=== PATIENT | female | born 1960 | race Caucasian/White ===

== ENCOUNTER 2023-03-30 23:13 | Inpatient (IN) ==
[2023-03-31] MEDS ORDERED: ONDANSETRON INJ 2 MG/ML 2 ML VIAL IV STA (00:26)
[2023-03-31] MEDS ORDERED: HYDROmorphone INJ 1 MG/ML SYRINGE IV STA (00:26)
[2023-03-31] MEDS ORDERED: SODIUM CHLORIDE 0.9% 1000ML 1,000 ML IV STA ×2 (00:26→06:02)
[2023-03-31 00:57] LABS: Basophils # (auto) 0.05 K/uL (0-0.2); Basophils % (auto) 0.5 %; Eosinophils # (auto) 0.06 K/uL (0-0.50); Eosinophils % (auto) 0.6 %; Hematocrit (blood only) 42.2 % (37.0-47.0); Hemoglobin 14.2 g/dl (12.0-16.0); Immature Granulocytes # (auto) 0.03 K/uL (0.01-0.20); Immature Granulocytes % (auto) 0.3 %; Lymphocytes # (auto) 1.27 K/uL (1.2-3.4); Lymphocytes % (auto) 12.8 %; Mean Corpuscular Hemoglobin 30.1 pg (25.0-34.0); Mean Corpuscular Hgb Conc 33.6 g/dL (32.0-36.0); Mean Corpuscular Volume 89.6 fL (80.0-100.0); Mean Platelet Volume 9.4 fL (9.4-12.4); Monocytes % (auto) 7.1 %; Neutrophils # (auto) 7.79 K/uL (1.40-6.50); Neutrophils % (auto) 78.7 %; Platelet Count 279 K/uL (130-400); RDW Coefficient of Variation 12.6 % (11.5-14.5); RDW Standard Deviation 41.5 fL (36.4-46.3); Red Blood Count 4.71 M/uL (4.20-5.40)
[2023-03-31 01:03] LABS: Albumin Globulin Ratio 1.2 (0.9-2); Albumin Level 4.1 gm/dl (3.4-5.0); BUN Creatinine Ratio 18.1 (10-20); Bilirubin,Total 2.5 mg/dl (0.2-1.0); Calcium 9.3 mg/dl (8.6-10.3); Creatinine Clr Calc Pharmacy 75.3 ml/min; Est GFR (African American) 75.9 ml/min; Est GFR (Non-African American) 65.5 ml/min; Globulin 3.5 gm/dl (2.5-4.0); Potassium 4.2 mmol/L (3.5-5.1); Total Protein 7.6 gm/dl (6.0-8.3)
--- NOTE | 2023-03-31 04:08 | Emergency Department Note ---
Impression & Plan Biliary colic Admit to the [facility] service for evaluation ED Provider Note NAME: AMINA GOMEZ AGE: 62 SEX: F ARRIVES VIA: Walk-In INFORMANT: Patient ED PROVIDER(S): Cathy Mart DO CHIEF COMPLAINT: Right upper quadrant abdominal pain PLAN: Disposition: Admit to the [facility] Condition: Fair MEDICAL DECISION MAKING: This is a 62-year-old female patient presents to the emergency department with right upper quadrant abdominal pain and vomiting. Patient has had 3 episodes of pain and nausea/vomiting in the past 24 hours. She underwent a gallbladder ultrasound and blood work earlier this morning which showed evidence of cholelithiasis and elevated transaminases. However the pain had subsided earlier in the day. This evening, the pain returned and continues along with bilious vomiting. I obtained external records from [facility] to review the ultrasound report and laboratory studies. Patient now has an elevated total bilirubin to 2.5 and elevated alkaline phosphatase. We have repeated her right upper quadrant ultrasound here in the emergency department tonight. There is evidence of a dilated common bile duct now. I discussed the case with the [facility] and they will evaluate for further management of biliary colic and will need to rule out choledocholithiasis. Triage Nursing notes reviewed and agree with them. Additional history obtained from her who is at the bedside External medical records reviewed in the [employer] system Vital Signs: reviewed and unremarkable Differential diagnosis: Acute cholecystitis; choledocholithiasis; biliary colic, sepsis; dehydration ER treatment provided: Cardiac monitoring IV normal saline bolus IV Zofran IV Dilaudid Diagnostics interpreted by me: Laboratory studies: See below Imaging studies: As per stat rad Right upper quadrant ultrasound: See report HPI: 62/F arrives for evaluation of right upper quadrant abdominal pain. Patient has had 3 episodes of right upper quadrant abdominal pain, nausea and vomiting in the past 24 hours. She was seen earlier today at [facility] for a right upper quadrant ultrasound to look at the gallbladder as well as blood work. Throughout the afternoon, the pain and vomiting subsided but it returned at 7 PM this evening and has not gone away. She now has bilious vomiting. She does describe a extensive family history of gallbladder issues including her mother and grandmother PAST MEDICAL HISTORY:GERD PAST SURGICAL HISTORY:See Below FAMILY HISTORY:See Below SOCIAL HISTORY:Patient is ; she denies alcohol or tobacco use. HOME MEDICATIONS:See list ALLERGIES:See list VITALS:See Below PHYSICAL EXAMINATION: HEENT: Head - normocephalic and atraumatic. Pupils are equal, round, and reactive to light. Extraocular eye muscles are intact, and sclera are anicteric. Nose - moist nasal mucosa without discharge. Mouth - moist buccal mucosa. Oropharynx is nonerythematous and there is no tonsillar exudate or edema noted. Neck: Supple; no cervical of adenopathy or JVD Heart: Regular rate and rhythm. There is a normal S1 and S2 with no murmurs, clicks, or gallops appreciated. Lungs: Clear to auscultation bilaterally with no wheezes, rales, or rhonchi. Abdomen: Soft, exquisitely tender to palpation in the right quadrant of the abdomen and epigastrium. There are no palpable pulsatile masses or hepatosplenomegaly. There is no guarding, rigidity, or rebound noted. Extremities: No evidence of cyanosis, clubbing, or edema. There are easily palpable peripheral pulses. Skin: warm and dry with good turgor and no rashes. ED COURSE: Times/Reassessments: 0015: Patient was evaluated in room C11. A complete history and physical was performed. An IV lock was initiated and labs are drawn as above. Patient was given a dose of IV Dilaudid and IV Zofran for her pain and nausea. She was bolused with IV normal saline solution. She went for right upper quadrant ultrasound of the abdomen. Upon return from radiology, I reviewed the results with the patient and her . I discussed the case with the [facility] and they will evaluate for f urther management. Cathy Mart, DO Past Med/Surg History Social History Smoking Status: Never smoker Second Hand Exposure: No; Do You Dip or Chew Tobacco: No; Tobacco Cessation Education Requested by Patient: No Hx Alcohol Use: No Hx Substance Use: No Preferred Language: Greek Communication Ability: Effective Ethnic Origins Teacher Required: No Beliefs That Will Affect Care: None Current Living Situation: Spouse Other Information That Helps Us Care for You: No Feels Safe at Home: Yes Safety Concerns: Feels Safe At This Time Assistive Devices: None Allergies Allergies Allergy/AdvReac Type Severity Reaction Status Date / Time kiwi Allergy Severe THROAT Verified 03/31/23 00:22 SWELLS DATES Allergy Severe THROAT Uncoded 03/31/23 00:22 SWELLS FIGS Allergy Severe THROAT Uncoded 03/31/23 00:22 SWELLS Home Meds Home Medications Medication Instructions Recorded Confirmed omeprazole magnesium 20 mg 20 mg PO QPM 03/31/23 03/31/23 tablet,delayed release (Prilosec OTC) Results & Data (ED) Vital Signs Vital Signs - 24 hr 03/31/23 08:43 03/31/23 09:48 03/31/23 10:34 Temperature 36.6 C Temperature Source Oral Pulse Rate 64 68 Pulse Rate [Apical] 65 Respiratory Rate 20 18 Blood Pressure 136/95 Blood Pressure [Left Arm] 123/83 Blood Pressure Mean [Left Arm] 96 Blood Pressure Position [Left Arm] Lying Pulse Oximetry 98 98 Oxygen Delivery Method Room Air Room Air EWS Level of Consciousness - Last Result EWS Temperature - Last Result EWS Respiratory Rate - Last Result EWS Oxygen Saturation - Last Result EWS Oxygen in Use - Last Result EWS Score EWS Clinical Risk 03/31/23 10:34 Temperature Temperature Source Pulse Rate Pulse Rate [Apical] Respiratory Rate Blood Pressure Blood Pressure [Left Arm] Blood Pressure Mean [Left Arm] Blood Pressure Position [Left Arm] Pulse Oximetry Oxygen Delivery Method EWS Level of Consciousness - Last Result Spontaneously Alert EWS Temperature - Last Result 36.6 EWS Respiratory Rate - Last Result 18 EWS Oxygen Saturation - Last Result 98 EWS Oxygen in Use - Last Result No EWS Score 0 EWS Clinical Risk Low Risk Laboratory Data 03/31/23 00:33 03/31/23 00:33 Lab Results 03/31/23 03/31/23 03/31/23 Range/Units 00:33 00:33 00:33 WBC 9.90 (4.8-10.8) K/ul RBC 4.71 (4.20-5.40) M/uL Hgb 14.2 (12.0-16.0) g/dl Hct 42.2 (37.0-47.0) % MCV 89.6 (80.0-100.0) fL MCH 30.1 (25.0-34.0) pg MCHC 33.6 (32.0-36.0) g/dL RDW Std Deviation 41.5 (36.4-46.3) fL RDW Coeff of [place]den 12.6 (11.5-14.5) % Plt Count 279 (130-400) K/uL MPV 9.4 (9.4-12.4) fL Immature Gran % (Auto) 0.3 % Neut % (Auto) 78.7 % Lymph % (Auto) 12.8 % [place] % (Auto) 7.1 % Eos % (Auto) 0.6 % Baso % (Auto) 0.5 % Neut # (Auto) 7.79 H (1.40-6.50) K/uL Lymph # (Auto) 1.27 (1.2-3.4) K/uL [place] # (Auto) 0.70 H (0.11-0.59) K/uL Eos # (Auto) 0.06 (0-0.50) K/uL Baso # (Auto) 0.05 (0-0.2) K/uL Immature Gran # (Auto) 0.03 (0.01-0.20) K/uL Sodium 138 (136-145) mmol/L Potassium 4.2 (3.5-5.1) mmol/L Chloride 105 (98-107) mmol/L Carbon Dioxide 26 (21-32) mmol/L Anion Gap 7 (3-11) BUN 17 (6-23) mg/dl Creatinine 0.94 (0.6-1.2) mg/dl Est Cr Clr Drug Dosing 75.3 ml/min Est GFR ( Amer) 75.9 ml/min Est GFR (Non-Af Amer) 65.5 ml/min BUN/Creatinine Ratio 18.1 (10-20) Glucose 128 H (70-99(Fasting)) mg/dl Estimat Average Glucose 120 mg/dl Hemoglobin A1c 5.8 H (4.5-5.6) % Calcium 9.3 (8.6-10.3) mg/dl Magnesium 2.1 (1.7-2.4) mg/dl Total Bilirubin 2.5 H (0.2-1.0) mg/dl AST 309 H (13-39) U/L ALT 384 H (7-52) U/L Alkaline Phosphatase 112 H (34-104) U/L Total Protein 7.6 (6.0-8.3) gm/dl Albumin 4.1 (3.4-5.0) gm/dl Globulin 3.5 (2.5-4.0) gm/dl Albumin/Globulin Ratio 1.2 (0.9-2) Lipase 29 (11-82) U/L TSH (0.300-4.500) uIu/ml Urine Color Urine Appearance (Clear) Urine pH (4.5-7.5) Ur Specific [place] (1.000-1.030) Urine Protein (Negative) Urine Glucose (UA) (Negative) Urine Ketones (Negative) Urine Blood (Negative) Urine Nitrite (Negative) Urine Bilirubin (Negative) Urine Urobilinogen (Negative) Ur Leukocyte Esterase (Negative) Urine WBC (Auto) (0-5) /hpf Urine RBC (Auto) (0-4) /hpf U Hyaline Cast (Auto) (0-5) /lpf U Epithel Cells (Auto) (0-5) /lpf Urine Bacteria (Auto) (Negative) SARS-CoV-2, RNA, NAAT (NEGATIVE) 03/31/23 03/31/23 03/31/23 Range/Units 00:33 05:49 10:20 WBC (4.8-10.8) K/ul RBC (4.20-5.40) M/uL Hgb (12.0-16.0) g/dl Hct (37.0-47.0) % MCV (80.0-100.0) fL MCH (25.0-34.0) pg MCHC (32.0-36.0) g/dL RDW Std Deviation (36.4-46.3) fL RDW Coeff of [place] (11.5-14.5) % Plt Count (130-400) K/uL MPV (9.4-12.4) fL Immature Gran % (Auto) % Neut % (Auto) % Lymph % (Auto) % [place] % (Auto) % Eos % (Auto) % Baso % (Auto) % Neut # (Auto) (1.40-6.50) K/uL Lymph # (Auto) (1.2-3.4) K/uL [place] # (Auto) (0.11-0.59) K/uL Eos # (Auto) (0-0.50) K/uL Baso # (Auto) (0-0.2) K/uL Immature Gran # (Auto) (0.01-0.20) K/uL Sodium (136-145) mmol/L Potassium (3.5-5.1) mmol/L Chloride (98-107) mmol/L Carbon Dioxide (21-32) mmol/L Anion Gap (3-11) BUN (6-23) mg/dl Creatinine (0.6-1.2) mg/dl Est Cr Clr Drug Dosing ml/min Est GFR ( Amer) ml/min Est GFR (Non-Af Amer) ml/min BUN/Creatinine Ratio (10-20) Glucose (70-99(Fasting)) mg/dl Estimat Average Glucose mg/dl Hemoglobin A1c (4.5-5.6) % Calcium (8.6-10.3) mg/dl Magnesium (1.7-2.4) mg/dl Total Bilirubin (0.2-1.0) mg/dl AST (13-39) U/L ALT (7-52) U/L Alkaline Phosphatase (34-104) U/L Total Protein (6.0-8.3) gm/dl Albumin (3.4-5.0) gm/dl Globulin (2.5-4.0) gm/dl Albumin/Globulin Ratio (0.9-2) Lipase (11-82) U/L TSH 2.883 (0.300-4.500) uIu/ml Urine Color Dark Yellow Urine Appearance Cloudy A (Clear) Urine pH 5.0 (4.5-7.5) Ur Specific [place] 1.025 (1.000-1.030) Urine Protein Negative (Negative) Urine Glucose (UA) Negative (Negative) Urine Ketones Negative (Negative) Urine Blood Trace H (Negative) Urine Nitrite Positive A (Negative) Urine Bilirubin 1+ H (Negative) Urine Urobilinogen Negative (Negative) Ur Leukocyte Esterase 2+ H (Negative) Urine WBC (Auto) 10-30 H (0-5) /hpf Urine RBC (Auto) 0-4 (0-4) /hpf U Hyaline Cast (Auto) 1-5 (0-5) /lpf U Epithel Cells (Auto) 20-30 H (0-5) /lpf Urine Bacteria (Auto) 4+ H (Negative) SARS-CoV-2, RNA, NAAT NEGATIVE (NEGATIVE) Administered Medications Enoxaparin Sodium (Enoxaparin Inj 40 Mg/0.4 Ml Syr) 40 mg SQ QAM ERWIN Stop: 04/30/23 11:04 Last Admin: 04/01/23 07:36 Dose: 40 mg Documented By: Admin: 03/31/23 13:35 Dose: 40 mg Documented By: ROSITA Ceftriaxone Sodium 2,000 mg/ (Dextrose) 70 mls @ 100 mls/hr IV Q24H ERWIN; Protocol Stop: 04/05/23 13:59 Last Infusion: 03/31/23 16:28 Dose: 0 mls/hr Documented By: Admin: 03/31/23 15:30 Dose: 100 mls/hr Documented By: ROSITA Sodium Chloride (Nss 1000ml) 1,000 mls @ 150 mls/hr IV .Q6H40M [facility] Stop: 04/30/23 13:59 Last Admin: 04/01/23 06:17 Dose: 150 mls/hr Documented By: Infusion: 04/01/23 06:15 Dose: 0 mls/hr Documented By: Admin: 03/31/23 23:34 Dose: 150 mls/hr Documented By: Infusion: 03/31/23 23:34 Dose: 0 mls/hr Documented By: Admin: 03/31/23 15:30 Dose: 150 mls/hr Documented By: ROSITA Ketorolac Tromethamine (Ketorolac Tromethamine 15 Mg/Ml Vial) 15 mg IV Q6H PRN PRN Reason: Pain Stop: 04/05/23 05:57 Last Admin: 03/31/23 17:30 Dose: 15 mg Documented By: ROSITA Pantoprazole Sodium (Pantoprazole 40 Mg Tab) 40 mg PO QPM ERWIN Stop: 04/30/23 20:59 Last Admin: 03/31/23 17:48 Dose: 40 mg Documented By: ROSITA Discontinued Medications Hydromorphone HCl (Hydromorphone Inj 1 Mg/Ml Syringe) 1 mg IV NOW STA Stop: 03/31/23 00:27 Last Admin: 03/31/23 00:37 Dose: 1 mg Documented By: Sodium Chloride (Nss 1000ml) 1,000 mls @ 999 mls/hr IV .Q1H1M STA Stop: 03/31/23 01:26 Last Infusion: 03/31/23 01:37 Dose: 0 mls/hr Documented By: Admin: 03/31/23 00:32 Dose: 999 mls/hr Documented By: Sodium Chloride (Nss 1000ml) 1,000 mls @ 100 mls/hr IV .Q10H STA Stop: 03/31/23 16:01 Last Infusion: 03/31/23 15:44 Dose: 0 mls/hr Documented By: Admin: 03/31/23 06:10 Dose: 100 mls/hr Documented By: Ondansetron HCl (Ondansetron Inj 2 Mg/Ml 2 Ml Vial) 4 mg IV NOW STA Stop: 03/31/23 00:27 Last Admin: 03/31/23 00:37 Dose: 4 mg Documented By: Discharge Plan Visit Data Chief Complaint: Abdominal Pain Stated Complaint: ABDOMINAL PAIN,3RD EPISODE,VOMIT, ED Provider: Cathy Mart Discharge Problem: Biliary colic Patient Disposition: Admitted As Inpatient Discharge Instructions Interventions: ED Discharge Assessment Last Done: 03/31/23 09:48
--- NOTE | 2023-03-31 05:38 | Ultrasound Report ---
Exam(s): US GALLBLADDER EXAM: US Abdomen Limited, Gallbladder CLINICAL HISTORY: Reason for exam: eval for acute gb. TECHNIQUE: Real-time ultrasound of the right upper quadrant with image documentation. COMPARISON: No relevant prior studies available. FINDINGS: Liver: The liver measures 16.3 cm in length. Increased hepatic echogenicity. Findings can be seen with hepatic steatosis. Suspected sparing around the gallbladder. Gallbladder: Gallbladder wall thickness measures 2 mm. Cholelithiasis. Common bile duct: The common duct measures 8 mm in diameter. No stones. No dilation. Pancreas: Unremarkable as visualized. IMPRESSION: 1. Dilated common duct measuring up to 8 mm without evidence of intrahepatic biliary dilatation. Findings may be due to obstruction. Consider MRCP if there is further concern. 2. Cholelithiasis without gross findings to suggest cholecystitis. 3. Hepatic steatosis. Electronically signed by: Niko Hernandez MD 03/31/23 05:36 AM
[2023-03-31] MEDS ORDERED: ACETAMINOPHEN 500 MG TAB PO PRN (05:58)
[2023-03-31] MEDS ORDERED: LORazepam 0.5 MG TAB PO PRN (05:58)
[2023-03-31] MEDS ORDERED: KETOROLAC TROMETHAMINE 15 MG/ML VIAL IV PRN (05:58)
[2023-03-31] MEDS ORDERED: PROMETHAZINE HCL 12.5 MG in SODIUM CHLORIDE 0.9% 50 ML IV PRN (05:58)
[2023-03-31] MEDS ORDERED: oxyCODONE HCL IR 5 MG TAB (IMMEDIATE RELEASE) PO PRN (05:58)
[2023-03-31 06:37] LABS: Magnesium 2.1 mg/dl (1.7-2.4)
--- NOTE | 2023-03-31 07:42 | History & Physical Report ---
Date of Service March 31, 2023 Assessment & Plan (1) Biliary colic: Plan: Gallstones on outpatient ultrasound yesterday. Rule out choledocholithiasis given abnormal LFTs Patient not septic for now GERD stable on PPI hyperglycemia rule out DM OBS GMF MRCP GI consult Re: Abnormal LFTs N.p.o. for now Check hemoglobin A1c DVT prophylaxis with Lovenox subcu Full code Text document was generated using [employer] voice recognition software. It may contain grammatical or spelling errors. Kindly contact undersigned for clarification of any documentation item in question. History of Present Illness Chief Complaint: Worsening abdominal pain, gallbladder trouble Primary Care Provider: Justin Espinosa PA-C History obtained from patient and records. Medical history significant for GERD, recent diagnosis of cholelithiasis. 6 weeks history of intermittent epigastric discomfort with emesis, somewhat worse after eating. Symptoms worse the last few days. No fever, no chills. No chest pain, no SOB. Patient worried about gallbladder trouble given family history. Patient seen at PCP's office yesterday. Patient sent for outpatient gallbladder ultrasound which showed cholelithiasis, no cholecystitis. Outpatient LFTs showed AST 419, ALT 418, alk phos within normal limits. Patient had not been informed about her outpatient test results. Patient consulted ER for worsening symptoms. Medical History as above Surgical History : None Family History : Gallstones, breast cancer, heart disease, migraine Personal/Social history : Non-smoker, no EtOH intake, [employer] Allergies Allergy/AdvReac Type Severity Reaction Status Date / Time kiwi Allergy Severe THROAT Verified 03/31/23 00:22 SWELLS DATES Allergy Severe THROAT Uncoded 03/31/23 00:22 SWELLS FIGS Allergy Severe THROAT Uncoded 03/31/23 00:22 SWELLS Home Medications Medication Instructions Recorded Confirmed Type omeprazole magnesium 20 mg 20 mg PO QPM 03/31/23 03/31/23 History tablet,delayed release (Prilosec OTC) Past Med/Surg History Social History Smoking Status: Never smoker Preferred Language: Czech Feels Safe at Home: Yes Review of Systems Review of Systems: As per HPI, all other systems reviewed and negative Physical Exam Physical Exam: GENERAL: Comfortable, pleasant, obese, looks younger for stated age, no respiratory distress SKIN: Normal color, warm HEENT: [place] palpebral conjunctivae, no ptosis, dry buccal mucosa NECK : Supple, short neck, no tenderness CHEST : CTA, no tenderness HEART : RRR, no obvious murmurs ABDOMEN: Some distention, epigastric tenderness EXTREMITIES : Minimal LE swelling, no LE tenderness, no other conspicuous deformities noted NEUROLOGIC : Coherent, no facial asymmetry, no other gross focality Results & Data Results & Data Vital Signs (Past 12 Hours) Vital Signs Temp Pulse Pulse Resp BP BP Pulse Ox 03/31/23 07:09 58 L 13 125/76 98 03/31/23 04:58 73 16 107/60 96 03/31/23 04:48 64 03/31/23 04:30 62 18 03/31/23 01:33 112/64 03/31/23 01:33 68 20 96 03/31/23 00:59 72 14 117/61 93 03/31/23 00:58 72 03/31/23 00:42 66 14 97 03/30/23 23:21 36.2 C L 84 20 138/82 97 O2 Del Method 03/31/23 07:09 03/31/23 04:58 Room Air 03/31/23 04:48 03/31/23 04:30 03/31/23 01:33 03/31/23 01:33 Room Air 03/31/23 00:59 Room Air 03/31/23 00:58 03/31/23 00:42 Room Air 03/30/23 23:21 Room Air Laboratory Results Laboratory Results WBC 9.90 K/ul (4.8-10.8) 03/31/23 00:33 RBC 4.71 M/uL (4.20-5.40) 03/31/23 00:33 Hgb 14.2 g/dl (12.0-16.0) 03/31/23 00:33 Hct 42.2 % (37.0-47.0) 03/31/23 00:33 MCV 89.6 fL (80.0-100.0) 03/31/23 00:33 MCH 30.1 pg (25.0-34.0) 03/31/23 00:33 MCHC 33.6 g/dL (32.0-36.0) 03/31/23 00:33 RDW Std Deviation 41.5 fL (36.4-46.3) 03/31/23 00:33 RDW Coeff of Hayden 12.6 % (11.5-14.5) 03/31/23 00:33 Plt Count 279 K/uL (130-400) 03/31/23 00:33 MPV 9.4 fL (9.4-12.4) 03/31/23 00:33 Immature Gran % (Auto) 0.3 % 03/31/23 00:33 Neut % (Auto) 78.7 % 03/31/23 00:33 Lymph % (Auto) 12.8 % 03/31/23 00:33 [place] % (Auto) 7.1 % 03/31/23 00:33 Eos % (Auto) 0.6 % 03/31/23 00:33 Baso % (Auto) 0.5 % 03/31/23 00:33 Neut # (Auto) 7.79 K/uL (1.40-6.50) H 03/31/23 00:33 Lymph # (Auto) 1.27 K/uL (1.2-3.4) 03/31/23 00:33 [place] # (Auto) 0.70 K/uL (0.11-0.59) H 03/31/23 00:33 Eos # (Auto) 0.06 K/uL (0-0.50) 03/31/23 00:33 Baso # (Auto) 0.05 K/uL (0-0.2) 03/31/23 00:33 Immature Gran # (Auto) 0.03 K/uL (0.01-0.20) 03/31/23 00:33 Sodium 138 mmol/L (136-145) 03/31/23 00:33 Potassium 4.2 mmol/L (3.5-5.1) 03/31/23 00:33 Chloride 105 mmol/L (98-107) 03/31/23 00:33 Carbon Dioxide 26 mmol/L (21-32) 03/31/23 00:33 Anion Gap 7 (3-11) 03/31/23 00:33 BUN 17 mg/dl (6-23) 03/31/23 00:33 Creatinine 0.94 mg/dl (0.6-1.2) 03/31/23 00:33 Est Cr Clr Drug Dosing 75.3 ml/min 03/31/23 00:33 Est GFR ( Amer) 75.9 ml/min 03/31/23 00:33 Est GFR (Non-Af Amer) 65.5 ml/min 03/31/23 00:33 BUN/Creatinine Ratio 18.1 (10-20) 03/31/23 00:33 Glucose 128 mg/dl (70-99(Fasting)) H 03/31/23 00:33 Calcium 9.3 mg/dl (8.6-10.3) 03/31/23 00:33 Magnesium 2.1 mg/dl (1.7-2.4) 03/31/23 00:33 Total Bilirubin 2.5 mg/dl (0.2-1.0) H 03/31/23 00:33 AST 309 U/L (13-39) H 03/31/23 00:33 ALT 384 U/L (7-52) H 03/31/23 00:33 Alkaline Phosphatase 112 U/L (34-104) H 03/31/23 00:33 Total Protein 7.6 gm/dl (6.0-8.3) 03/31/23 00:33 Albumin 4.1 gm/dl (3.4-5.0) 03/31/23 00:33 Globulin 3.5 gm/dl (2.5-4.0) 03/31/23 00:33 Albumin/Globulin Ratio 1.2 (0.9-2) 03/31/23 00:33 Lipase 29 U/L (11-82) 03/31/23 00:33 TSH 2.883 uIu/ml (0.300-4.500) 03/31/23 00:33 SARS-CoV-2, RNA, NAAT NEGATIVE (NEGATIVE) 03/31/23 05:49 Impressions Gallbladder Ultrasound 03/31/23 01:33 Exam(s): US GALLBLADDER EXAM: US Abdomen Limited, Gallbladder CLINICAL HISTORY: Reason for exam: eval for acute gb. TECHNIQUE: Real-time ultrasound of the right upper quadrant with image documentation. COMPARISON: No relevant prior studies available. FINDINGS: Liver: The liver measures 16.3 cm in length. Increased hepatic echogenicity. Findings can be seen with hepatic steatosis. Suspected sparing around the gallbladder. Gallbladder: Gallbladder wall thickness measures 2 mm. Cholelithiasis. Common bile duct: The common duct measures 8 mm in diameter. No stones. No dilation. Pancreas: Unremarkable as visualized. IMPRESSION: 1. Dilated common duct measuring up to 8 mm without evidence of intrahepatic biliary dilatation. Findings may be due to obstruction. Consider MRCP if there is further concern. 2. Cholelithiasis without gross findings to suggest cholecystitis. 3. Hepatic steatosis. Electronically signed by: Niko Hernandez MD 03/31/23 05:36 AM
[2023-03-31 08:38] LABS: Estimated Average Glucose 120 mg/dl; Hemoglobin A1C 5.8 % (4.5-5.6)
--- NOTE | 2023-03-31 09:36 | Magnetic Resonance Report ---
MR MRCP HISTORY: Abnormal LFTs. Abnormal ultrasound. Dilated common bile duct. TECHNIQUE: MRCP of the abdomen was performed without contrast according to standard departmental prot ocol. COMPARISON STUDY: Abdominal ultrasound 03/31/2023. FINDINGS: The common bile duct remains mildly distended at 8 mm. However, there are no definite filli ng defects within the common bile duct to suggest choledocholithiasis. There are multiple small galls tones within the neck of the gallbladder. No gallbladder wall thickening. Mild central intrahepatic b ile duct dilatation is also noted. Possible pancreas divisum. The main pancreatic duct is normal in c aliber. The lung bases are clear. There is a tiny hiatus hernia. No hepatic or splenic masses. The ad renal glands and pancreas unremarkable. No retroperitoneal lymphadenopathy. Normal caliber abdominal aorta. The visualized loops of bowel show no wall thickening or obstruction. IMPRESSION: 1. Mild intra and extra hepatic bile duct dilatation with the common bile duct measuring up to 8 mm. This remains unchanged. No evidence for choledocholithiasis. 2. Cholelithiasis. No gallbladder wall thickening. 3. Possible pancreas divisum. Otherwise, normal caliber main pancreatic duct. ACT 112: Negative or not required by law. Electronically signed by: Edward Tan M.D. 03/31/2023 9:34 AM
[2023-03-31 10:35] LABS: Appearance Urine Cloudy (Clear); Bacteria Urine Automated 4+ (Negative); Blood Urine Trace (Negative); Color Urine Dark Yellow; Epithelial Cell Urine Auto 20-30 /lpf (0-5); Glucose Urine UA Negative (Negative); Ketones Urine Negative (Negative); Leukocyte Esterase Urine 2+ (Negative); Nitrite Urine Positive (Negative); Protein Urine Negative (Negative); Specific Gravity Urine 1.025 (1.000-1.030); Urobilinogen Urine Negative (Negative)
[2023-03-31 10:36] LABS: Bilirubin Urine 1+ (Negative)
[2023-03-31 10:51] LABS: RBC Urine Automated 0-4 /hpf (0-4)
--- NOTE | 2023-03-31 13:28 | Hospitalist Progress Note ---
Date of Service March 31, 2023 Assessment & Plan (1) Epigastric pain: Plan: no evidence of sepsis, epigastric pain present consistently. Clinically this appears consistent with pancreatitis with vomiting after food and intermittent ongoing epigastric pain, although gallstones are present and this may be biliary colic. This is not an exhaustive differential diagnosis. MRCP reveals no obstructive gallstones. No alcohol history. Pancreas divisum on MRCP as a cause for pancreatitis. Awaiting GI recommendations. Increase NSS to 150cc/hr. Cont bowel rest. Ice chips and small sips water ok. Pain meds/antiemetics PRN. Blood cultures prior to starting empiric Rocephin given report of chills yesterday. (2) Abnormal urinalysis: Plan: Rocephin pending urine culture results. (3) Pancreas divisum: Plan: New finding on MRCP today. Discussed with patient. Management per GI (4) Elevated LFTs: Plan: A reaction to process outlined above +/- recent vomiting. Cont bowel rest and trend LFTs in am. (5) Cholelithiasis: Plan: Noted on imaging. (6) Morbid obesity: Plan: Lifestyle changes recommended for better overall health. Full code Lovenox Dispo-to home when pain improved and she is tolerating PO. Beatriz Johnson DO [facility] Hospitalist Admission and Anticipated Discharge Date Admission Date: March 31, 2023 Subjective 62 yo F presents with epigastric abdominal discomfort intermittently for the past 3-4 weeks Pain is epigastric and radiates to back triggered by foods that are fatty like rice pudding reports some chills yesterday but no fevers denies UTI symptoms denies any hunger at this time we reviewed MRCP findings. Review of Systems Review of Systems: All systems were reviewed and negative except as indicated on HPI above. Physical Exam Physical Exam: CONSTITUTIONAL: obese, vitals as above, generally well-appearing, NAD EYES: normal conjunctivae, no scleral icterus ENT: external ear and nose normal, MMM NECK: trachea midline RESPIRATORY: clear to auscultation bilaterally, no crackles, rales or wheezes, normal respiratory effort CARDIOVASCULAR: regular rate and rhythm, S1 and 2 heard without murmurs, gallops or rubs, no JVD, no peripheral edema CHEST: inspection of chest was normal GASTROINTESTINAL: soft, epigastric TTP, otherwise nontender, nondistended, no hepatomegaly, no guarding MUSCULOSKELETAL: strength 5/5 throughout, head is normocephalic and atraumatic SKIN: warm and dry NEUROLOGIC: CN 2-12 grossly intact, no sensory deficit, normal cognition, normal speech, no tremor PSYCHIATRIC: alert cooperative and oriented to person, place and time. Euth ymic mood, makes good eye contact, language grossly intact, recent and remote memory grossly intact. Results & Data Results & Data Vital Signs (Past 12 Hours) Vital Signs Temp Pulse Pulse Resp BP BP Pulse Ox 03/31/23 10:34 36.6 C 65 18 123/83 98 03/31/23 09:48 68 20 136/95 98 03/31/23 08:30 60 13 123/77 97 03/31/23 08:43 64 03/31/23 08:00 82 20 130/88 100 03/31/23 07:30 58 L 20 118/81 99 03/31/23 07:09 58 L 13 125/76 98 03/31/23 04:58 73 16 107/60 96 03/31/23 04:48 64 03/31/23 04:30 62 18 03/31/23 01:33 112/64 03/31/23 01:33 68 20 96 O2 Del Method 03/31/23 10:34 Room Air 03/31/23 09:48 Room Air 03/31/23 08:30 03/31/23 08:43 03/31/23 08:00 03/31/23 07:30 03/31/23 07:09 03/31/23 04:58 Room Air 03/31/23 04:48 03/31/23 04:30 03/31/23 01:33 03/31/23 01:33 Room Air Laboratory Results Short CBC 03/31/23 Range/Units 00:33 WBC 9.90 (4.8-10.8) K/ul Hgb 14.2 (12.0-16.0) g/dl Hct 42.2 (37.0-47.0) % Plt Count 279 (130-400) K/uL BMP 03/31/23 00:33 Sodium 138 Potassium 4.2 Chloride 105 Carbon Dioxide 26 BUN 17 Creatinine 0.94 Glucose 128 H Calcium 9.3 Liver Function 03/31/23 Range/Units 00:33 Total Bilirubin 2.5 H (0.2-1.0) mg/dl AST 309 H (13-39) U/L ALT 384 H (7-52) U/L Alkaline Phosphatase 112 H (34-104) U/L Albumin 4.1 (3.4-5.0) gm/dl Urine 03/31/23 Range/Units 10:20 Urine Color Dark Yellow Urine Appearance Cloudy A (Clear) Urine pH 5.0 (4.5-7.5) Ur Specific [place] 1.025 (1.000-1.030) Urine Protein Negative (Negative) Urine Glucose (UA) Negative (Negative) Diagnostic Findings Gallbladder Ultrasound 03/31/23 01:33 Exam(s): US GALLBLADDER EXAM: US Abdomen Limited, Gallbladder CLINICAL HISTORY: Reason for exam: eval for acute gb. TECHNIQUE: Real-time ultrasound of the right upper quadrant with image documentation. COMPARISON: No relevant prior studies available. FINDINGS: Liver: The liver measures 16.3 cm in length. Increased hepatic echogenicity. Findings can be seen with hepatic steatosis. Suspected sparing around the gallbladder. Gallbladder: Gallbladder wall thickness measures 2 mm. Cholelithiasis. Common bile duct: The common duct measures 8 mm in diameter. No stones. No dilation. Pancreas: Unremarkable as visualized. IMPRESSION: 1. Dilated common duct measuring up to 8 mm without evidence of intrahepatic biliary dilatation. Findings may be due to obstruction. Consider MRCP if there is further concern. 2. Cholelithiasis without gross findings to suggest cholecystitis. 3. Hepatic steatosis. Electronically signed by: Niko Hernandez MD 03/31/23 05:36 AM Cholangiopancreatography MRI 03/31/23 07:44 MR MRCP HISTORY: Abnormal LFTs. Abnormal ultrasound. Dilated common bile duct. TECHNIQUE: MRCP of the abdomen was performed without contrast according to standard departmental protocol. COMPARISON STUDY: Abdominal ultrasound 03/31/2023. FINDINGS: The common bile duct remains mildly distended at 8 mm. However, there are no definite filling defects within the common bile duct to suggest choledocholithiasis. There are multiple small gallstones within the neck of the gallbladder. No gallbladder wall thickening. Mild central intrahepatic bile duct dilatation is also noted. Possible pancreas divisum. The main pancreatic duct is normal in caliber. The lung bases are clear. There is a tiny hiatus hernia. No hepatic or splenic masses. The adrenal glands and pancreas unremarkable. No retroperitoneal lymphadenopathy. Normal caliber abdominal aorta. The visualized loops of bowel show no wall thickening or obstruction. IMPRESSION: 1. Mild intra and extra hepatic bile duct dilatation with the common bile duct measuring up to 8 mm. This remains unchanged. No evidence for choledocholithiasis. 2. Cholelithiasis. No gallbladder wall thickening. 3. Possible pancreas divisum. Otherwise, normal caliber main pancreatic duct. ACT 112: Negative or not required by law. Electronically signed by: Edward Tan M.D. 03/31/2023 9:34 AM
[2023-03-31] MEDS: ENOXAPARIN INJ 40 MG/0.4 ML SYR SQ SCH (13:35)
--- NOTE | 2023-03-31 15:28 | Gastrointestinal Consultation ---
Date of Consultation March 31, 2023 Assessment & Plan (1) Cholelithiasis: Her pain is very typical for biliary colic. With elevated LFT's (never had this before) and negative MRCP it suggests she passed a CBD stone. Or the MRCP could have missed a small stone. I would suggest surgery consult and let them decide about cholecystectomy with IOC. ERCP could be done post op if needed. If surgery would prefer ERCP pre-op I can speak to William or Mirza and see if it could be done Sunday. (2) Elevated LFTs: History of Present Illness Reason for Consultation: abdominal pain Attending Physician: Beatriz Johnson, History of Present Illness 62 year old female admitted with three episodes of abdominal pain in 24 hours. She has had pains for a while now. Described as a knot like pain in her upper abdomen/right side that will occasionally radiate to her back. On occasion she will vomit with the pain. Usually it lasts for a while then would go away for a couple of weeks. It had gotten more frequent until she had a spell pm and three times on Sunday. Her urine turned dark as well. On admit her LFT's were elevated but MRCP showed dilated ducts without defects. She has never had pains like this before. Allergies Allergy/AdvReac Type Severity Reaction Status Date / Time sandeep Allergy Severe THROAT Verified 03/31/23 00:22 SWELLS DATES Allergy Severe THROAT Uncoded 03/31/23 00:22 SWELLS FIGS Allergy Severe THROAT Uncoded 03/31/23 00:22 SWELLS Home Medications Medication Instructions Recorded Confirmed Type omeprazole magnesium 20 mg 20 mg PO QPM 03/31/23 03/31/23 History tablet,delayed release (Prilosec OTC) Patient History Social History Smoking Status: Never smoker Second Hand Exposure: No; Do You Dip or Chew Tobacco: No; Tobacco Cessation Education Requested by Patient: No Hx Alcohol Use: No Hx Substance Use: No Preferred Language: Gabonese Communication Ability: Effective Pst Manager Required: No Beliefs That Will Affect Care: None Current Living Situation: Spouse Other Information That Helps Us Care for You: No Feels Safe at Home: Yes Safety Concerns: Feels Safe At This Time Assistive Devices: None Review of Systems Review of Systems: All systems reviewed & are unremarkable except as noted in HPI & below Physical Exam Constitutional: WD/WN, vitals as above no acute distress Eyes: PERRL, conjunctivae normal, anicteric sclerae ENMT: external ear and nose normal, oropharynx normal Neck: trachea midline, no thyromegaly Respiratory: normal respiratory effort, lungs clear to auscultation Cardiovascular: RRR, no murmur, no edema Gastrointestinal (Abdomen): normal bowel sounds, soft, nontender, no hepatosplenomegaly Musculoskeletal: Extremities: no cyanosis and no clubbing Skin: no rashes, warm and dry Neurologic: PERRL, EOMI, accommodation nl, no face palsy, no dysarthria Psychiatric: Orientation: alert and oriented x 3 Results & Data Vital Signs (Past 12 Hours) Vital Signs Temp Pulse Pulse Resp BP BP Pulse Ox 03/31/23 10:34 36.6 C 65 18 123/83 98 03/31/23 09:48 68 20 136/95 98 03/31/23 08:30 60 13 123/77 97 03/31/23 08:43 64 03/31/23 08:00 82 20 130/88 100 03/31/23 07:30 58 L 20 118/81 99 03/31/23 07:09 58 L 13 125/76 98 03/31/23 04:58 73 16 107/60 96 03/31/23 04:48 64 03/31/23 04:30 62 18 O2 Del Method 03/31/23 10:34 Room Air 03/31/23 09:48 Room Air 03/31/23 08:30 03/31/23 08:43 03/31/23 08:00 03/31/23 07:30 03/31/23 07:09 03/31/23 04:58 Room Air 03/31/23 04:48 03/31/23 04:30 Laboratory Results 03/31/23 03/31/23 03/31/23 00:33 00:33 00:33 WBC 9.90 RBC 4.71 Hgb 14.2 Hct 42.2 MCV 89.6 MCH 30.1 MCHC 33.6 RDW Std Deviation 41.5 RDW Coeff of Hayden 12.6 Plt Count 279 MPV 9.4 Immature Gran % (Auto) 0.3 Neut % (Auto) 78.7 Lymph % (Auto) 12.8 Sac % (Auto) 7.1 Eos % (Auto) 0.6 Baso % (Auto) 0.5 Neut # (Auto) 7.79 H Lymph # (Auto) 1.27 Sac # (Auto) 0.70 H Eos # (Auto) 0.06 Baso # (Auto) 0.05 Immature Gran # (Auto) 0.03 Sodium 138 Potassium 4.2 Chloride 105 Carbon Dioxide 26 Anion Gap 7 BUN 17 Creatinine 0.94 Est Cr Clr Drug Dosing 75.3 Est GFR ( Amer) 75.9 Est GFR (Non-Af Amer) 65.5 BUN/Creatinine Ratio 18.1 Glucose 128 H Estimat Average Glucose 120 Hemoglobin A1c 5.8 H Calcium 9.3 Magnesium 2.1 Total Bilirubin 2.5 H AST 309 H ALT 384 H Alkaline Phosphatase 112 H Total Protein 7.6 Albumin 4.1 Globulin 3.5 Albumin/Globulin Ratio 1.2 Lipase 29 TSH Urine Color Urine Appearance Urine pH Ur Specific [place] Urine Protein Urine Glucose (UA) Urine Ketones Urine Blood Urine Nitrite Urine Bilirubin Urine Urobilinogen Ur Leukocyte Esterase Urine WBC (Auto) Urine RBC (Auto) U Hyaline Cast (Auto) U Epithel Cells (Auto) Urine Bacteria (Auto) SARS-CoV-2, RNA, NAAT 03/31/23 03/31/23 03/31/23 00:33 05:49 10:20 WBC RBC Hgb Hct MCV MCH MCHC RDW Std Deviation RDW Coeff of [place]den Plt Count MPV Immature Gran % (Auto) Neut % (Auto) Lymph % (Auto) Sac % (Auto) Eos % (Auto) Baso % (Auto) Neut # (Auto) Lymph # (Auto) Sac # (Auto) Eos # (Auto) Baso # (Auto) Immature Gran # (Auto) Sodium Potassium Chloride Carbon Dioxide Anion Gap BUN Creatinine Est Cr Clr Drug Dosing Est GFR ( Amer) Est GFR (Non-Af Amer) BUN/Creatinine Ratio Glucose Estimat Average Glucose Hemoglobin A1c Calcium Magnesium Total Bilirubin AST ALT Alkaline Phosphatase Total Protein Albumin Globulin Albumin/Globulin Ratio Lipase TSH 2.883 Urine Color Dark Yellow Urine Appearance Cloudy A Urine pH 5.0 Ur Specific [place] 1.025 Urine Protein Negative Urine Glucose (UA) Negative Urine Ketones Negative Urine Blood Trace H Urine Nitrite Positive A Urine Bilirubin 1+ H Urine Urobilinogen Negative Ur Leukocyte Esterase 2+ H Urine WBC (Auto) 10-30 H Urine RBC (Auto) 0-4 U Hyaline Cast (Auto) 1-5 U Epithel Cells (Auto) 20-30 H Urine Bacteria (Auto) 4+ H SARS-CoV-2, RNA, NAAT NEGATIVE Diagnostic Findings Gallbladder Ultrasound 03/31/23 01:33 Exam(s): US GALLBLADDER EXAM: US Abdomen Limited, Gallbladder CLINICAL HISTORY: Reason for exam: eval for acute gb. TECHNIQUE: Real-time ultrasound of the right upper quadrant with image documentation. COMPARISON: No relevant prior studies available. FINDINGS: Liver: The liver measures 16.3 cm in length. Increased hepatic echogenicity. Findings can be seen with hepatic steatosis. Suspected sparing around the gallbladder. Gallbladder: Gallbladder wall thickness measures 2 mm. Cholelithiasis. Common bile duct: The common duct measures 8 mm in diameter. No stones. No dilation. Pancreas: Unremarkable as visualized. IMPRESSION: 1. Dilated common duct measuring up to 8 mm without evidence of intrahepatic biliary dilatation. Findings may be due to obstruction. Consider MRCP if there is further concern. 2. Cholelithiasis without gross findings to suggest cholecystitis. 3. Hepatic steatosis. Electronically signed by: Niko Hernandez MD 03/31/23 05:36 AM Cholangiopancreatography MRI 03/31/23 07:44 MR MRCP HISTORY: Abnormal LFTs. Abnormal ultrasound. Dilated common bile duct. TECHNIQUE: MRCP of the abdomen was performed without contrast according to standard departmental protocol. COMPARISON STUDY: Abdominal ultrasound 03/31/2023. FINDINGS: The common bile duct remains mildly distended at 8 mm. However, there are no definite filling defects within the common bile duct to suggest choledocholithiasis. There are multiple small gallstones within the neck of the gallbladder. No gallbladder wall thickening. Mild central intrahepatic bile duct dilatation is also noted. Possible pancreas divisum. The main pancreatic duct is normal in caliber. The lung bases are clear. There is a tiny hiatus hernia. No hepatic or splenic masses. The adrenal glands and pancreas unremarkable. No retroperitoneal lymphadenopathy. Normal caliber abdominal aorta. The visualized loops of bowel show no wall thickening or obstruction. IMPRESSION: 1. Mild intra and extra hepatic bile duct dilatation with the common bile duct measuring up to 8 mm. This remains unchanged. No evidence for choledocholithiasis. 2. Cholelithiasis. No gallbladder wall thickening. 3. Possible pancreas divisum. Otherwise, normal caliber main pancreatic duct. ACT 112: Negative or not required by law. Electronically signed by: Edward Tan M.D. 03/31/2023 9:34 AM
[2023-03-31] MEDS: SODIUM CHLORIDE 0.9% 1000ML 1,000 ML IV SCH ×2 (15:30→23:34)
[2023-03-31] MEDS: cefTRIAXone SODIUM 2,000 MG in DEXTROSE 5% 50 ML IV SCH (15:30)
[2023-03-31] MEDS: PANTOprazole 40 MG TAB PO SCH (17:48)
[2023-04-01] MEDS: SODIUM CHLORIDE 0.9% 1000ML 1,000 ML IV SCH ×2 (06:17→12:31)
[2023-04-01 06:18] LABS: Basophils # (auto) 0.06 K/uL (0-0.2); Basophils % (auto) 1.1 %; Eosinophils # (auto) 0.15 K/uL (0-0.50); Eosinophils % (auto) 2.7 %; Hematocrit (blood only) 38.8 % (37.0-47.0); Hemoglobin 12.8 g/dl (12.0-16.0); Immature Granulocytes # (auto) 0.02 K/uL (0.01-0.20); Immature Granulocytes % (auto) 0.4 %; Lymphocytes # (auto) 2.05 K/uL (1.2-3.4); Lymphocytes % (auto) 36.5 %; Mean Corpuscular Hemoglobin 30.2 pg (25.0-34.0); Mean Corpuscular Volume 91.5 fL (80.0-100.0); Mean Platelet Volume 9.4 fL (9.4-12.4); Monocytes # (auto) 0.57 K/uL (0.11-0.59); Monocytes % (auto) 10.2 %; Neutrophils # (auto) 2.76 K/uL (1.40-6.50); Neutrophils % (auto) 49.1 %; Platelet Count 235 K/uL (130-400); RDW Coefficient of Variation 12.7 % (11.5-14.5); Red Blood Count 4.24 M/uL (4.20-5.40); White Blood Count 5.61 K/ul (4.8-10.8)
[2023-04-01 06:43] LABS: Albumin Globulin Ratio 1.1 (0.9-2); Albumin Level 3.3 gm/dl (3.4-5.0); Bilirubin,Total 2.4 mg/dl (0.2-1.0); Est GFR (African American) 75.9 ml/min; Est GFR (Non-African American) 65.5 ml/min; Globulin 2.9 gm/dl (2.5-4.0); Potassium 4.3 mmol/L (3.5-5.1); Total Protein 6.2 gm/dl (6.0-8.3)
[2023-04-01] MEDS: ENOXAPARIN INJ 40 MG/0.4 ML SYR SQ SCH (07:36)
--- NOTE | 2023-04-01 09:21 | Surgery Consultation ---
Date of Consultation April 01, 2023 Assessment & Plan (1) Cholelithiasis: 62year old female with cholelithiasis without evidence of cholecystitis. She does have persistently elevated LFTs, though these appear to be downtrending. Her MRCP yesterday was negative. There is no ERCP coverage over the weekend so any treatment was deferred till Sunday from a GI perspective. It appears as though she probably passed a small stone through common bile duct. Cholecystectomy is warranted but due to current OR schedule over the weekend we will defer till tomorrow. She may have clear liquids today, we will make her n.p.o. after midnight. We will have her labs repeated and if her LFTs are continuing to downtrend then we will proceed with cholecystectomy. If they are persistently elevated or rising then we will discuss possible ERCP at the same time with GI. Okay to have clear liquids today, n.p.o. after midnight Repeat LFTs in the morning Tentatively plan for robotic versus laparoscopic cholecystectomy with possible cholangiogram risks discussed to include but not limited to bleeding, infection, retained stone, bile leak, open surgery, damage to surrounding structures including bile duct, need for future or more extensive surgery, failure to treat symptoms, and risks of anesthesia. (2) Biliary colic: (3) Morbid obesity: (4) Elevated LFTs: History of Present Illness Reason for Consultation: Cholelithiasis Attending Physician: Beatriz Johnson, History of Present Illness 62-year-old female and admitted for abdominal pain with cholelithiasis and concern for choledocholithiasis or pancreatitis. She started having intermittent postprandial pain about 6 weeks ago. She has had several episodes. The pain is typically epigastric and last for a few hours. She does have associated nausea and vomiting with it. She had an episode few days ago and had an ultrasound performed showed cholelithiasis and labs that showed mild transaminitis. The pain became worse and she reported to the emergency department here at [facility]. She had a normal white count and an ultrasound which showed cholelithiasis without cholecystitis and a dilated common bile duct. Her LFTs were elevated. An MRCP was performed and showed no obvious filling defect. GI saw her yesterday and recommended general surgery consultation. There is no ERCP coverage over the weekend. She is feeling a little bit better, still little sore. No nausea or vomiting. No prior abdominal surgeries, otherwise healthy. Allergies Allergy/AdvReac Type Severity Reaction Status Date / Time kiwi Allergy Severe THROAT Verified 03/31/23 00:22 SWELLS DATES Allergy Severe THROAT Uncoded 03/31/23 00:22 SWELLS FIGS Allergy Severe THROAT Uncoded 03/31/23 00:22 SWELLS Home Medications Medication Instructions Recorded Confirmed Type omeprazole magnesium 20 mg 20 mg PO QPM 03/31/23 03/31/23 History tablet,delayed release (Prilosec OTC) Patient History Social History Smoking Status: Never smoker Second Hand Exposure: No; Do You Dip or Chew Tobacco: No; Tobacco Cessation Education Requested by Patient: No Hx Alcohol Use: No Hx Substance Use: No Preferred Language: Swedish Communication Ability: Effective Cutter Operator Helper Required: No Beliefs That Will Affect Care: None Current Living Situation: Spouse Other Information That Helps Us Care for You: No Feels Safe at Home: Yes Safety Concerns: Feels Safe At This Time Assistive Devices: None Review of Systems Review of Systems: All systems reviewed & are unremarkable except as noted in HPI & below Physical Exam Constitutional: WD/WN, vitals as above + obese Respiratory: normal respiratory effort, lungs clear to auscultation Cardiovascular: RRR, no murmur, no edema Gastrointestinal (Abdomen): normal bowel sounds, soft, nontender, no hepatosplenomegaly Results & Data Vital Signs (Past 12 Hours) Vital Signs Temp Pulse Resp BP Pulse Ox O2 Del Method 04/01/23 07:33 37.2 C 74 18 128/84 95 Room Air Laboratory Results Laboratory Results - last 24 hr 03/31/23 04/01/23 04/01/23 10:20 05:59 05:59 WBC 5.61 RBC 4.24 Hgb 12.8 Hct 38.8 MCV 91.5 MCH 30.2 MCHC 33.0 RDW Std Deviation 42.0 RDW Coeff of [place] 12.7 Plt Count 235 MPV 9.4 Immature Gran % (Auto) 0.4 Neut % (Auto) 49.1 Lymph % (Auto) 36.5 Angelina % (Auto) 10.2 Eos % (Auto) 2.7 Baso % (Auto) 1.1 Neut # (Auto) 2.76 Lymph # (Auto) 2.05 Angelina # (Auto) 0.57 Eos # (Auto) 0.15 Baso # (Auto) 0.06 Immature Gran # (Auto) 0.02 Sodium 140 Potassium 4.3 Chloride 109 H Carbon Dioxide 27 Anion Gap 4 BUN 16 Creatinine 0.94 Est Cr Clr Drug Dosing 74.0 Est GFR ( Amer) 75.9 Est GFR (Non-Af Amer) 65.5 BUN/Creatinine Ratio 17.0 Glucose 71 Calcium 8.0 L Total Bilirubin 2.4 H AST 126 H ALT 251 H Alkaline Phosphatase 100 Total Protein 6.2 Albumin 3.3 L Globulin 2.9 Albumin/Globulin Ratio 1.1 Urine Color Dark Yellow Urine Appearance Cloudy A Urine pH 5.0 Ur Specific [place] 1.025 Urine Protein Negative Urine Glucose (UA) Negative Urine Ketones Negative Urine Blood Trace H Urine Nitrite Positive A Urine Bilirubin 1+ H Urine Urobilinogen Negative Ur Leukocyte Esterase 2+ H Urine WBC (Auto) 10-30 H Urine RBC (Auto) 0-4 U Hyaline Cast (Auto) 1-5 U Epithel Cells (Auto) 20-30 H Urine Bacteria (Auto) 4+ H Diagnostic Findings Exam(s): US GALLBLADDER EXAM: US Abdomen Limited, Gallbladder CLINICAL HISTORY: Reason for exam: eval for acute gb. TECHNIQUE: Real-time ultrasound of the right upper quadrant with image documentation. COMPARISON: No relevant prior studies available. FINDINGS: Liver: The liver measures 16.3 cm in length. Increased hepatic echogenicity. Findings can be seen with hepatic steatosis. Suspected sparing around the gallbladder. Gallbladder: Gallbladder wall thickness measures 2 mm. Cholelithiasis. Common bile duct: The common duct measures 8 mm in diameter. No stones. No dilation. Pancreas: Unremarkable as visualized. IMPRESSION: 1. Dilated common duct measuring up to 8 mm without evidence of intrahepatic biliary dilatation. Findings may be due to obstruction. Consider MRCP if there is further concern. 2. Cholelithiasis without gross findings to suggest cholecystitis. 3. Hepatic steatosis. MR MRCP HISTORY: Abnormal LFTs. Abnormal ultrasound. Dilated common bile duct. TECHNIQUE: MRCP of the abdomen was performed without contrast according to standard departmental protocol. COMPARISON STUDY: Abdominal ultrasound 03/31/2023. FINDINGS: The common bile duct remains mildly distended at 8 mm. However, there are no definite filling defects within the common bile duct to suggest choledoch olithiasis. There are multiple small gallstones within the neck of the gallbladder. No gallbladder wall thickening. Mild central intrahepatic bile duct dilatation is also noted. Possible pancreas divisum. The main pancreatic duct is normal in caliber. The lung bases are clear. There is a tiny hiatus hernia. No hepatic or splenic masses. The adrenal glands and pancreas unremarkable. No retroperitoneal lymphadenopathy. Normal caliber abdominal aorta. The visualized loops of bowel show no wall thickening or obstruction. IMPRESSION: 1. Mild intra and extra hepatic bile duct dilatation with the common bile duct measuring up to 8 mm. This remains unchanged. No evidence for choledocholithiasis. 2. Cholelithiasis. No gallbladder wall thickening. 3. Possible pancreas divisum. Otherwise, normal caliber main pancreatic duct. ACT 112: Negative or not required by law. PG Care Time/CCT Total # of Minutes Spent Total Time Spent with Patient: Total time spent is greater than 50% in coordination of care (as documented) at patient's floor/unit and/or counseling patient: Coding Level of Care Code 46343 IN/OBS CONSULT LVL 3,45M Diagnoses Cholelithiasis K80.20 Biliary colic K80.50 Morbid obesity E66.01 Elevated LFTs R79.89
--- NOTE | 2023-04-01 09:37 | Hospitalist Progress Note ---
Date of Service April 01, 2023 Assessment & Plan (1) Epigastric pain: Plan: Presumed 2/2 biliary colic. She is planned for lap amira in am +/- intraoperative cholangiogram. MRCP reveals no obstructive gallstones. No alcohol history. Pancreas divisum on MRCP as a cause for pancreatitis. Pain meds/antiemetics PRN. (2) Abnormal urinalysis: Plan: Rocephin pending urine culture results, currently growing 100K GNB. Will cont treatment at this time. (3) Pancreas divisum: Plan: New finding on MRCP. Discussed with patient. Management per GI (4) Elevated LFTs: Plan: A reaction to process outlined above +/- recent vomiting. Cont bowel rest and trend LFTs in am. (5) Cholelithiasis: Plan: Noted on imaging. (6) Morbid obesity: Plan: Lifestyle changes recommended for better overall health. Full code Lovenox Dispo-to home after she is cleared by surgery to leave post-operatively . We discussed that she would likely need the week to recover and she is working on getting a orchestra teacher set up to revenue inspector for her this week. Beatriz Johnson [facility] and Anticipated Discharge Date Admission Date: March 31, 2023 Subjective 62 yo F presents with epigastric abdominal discomfort intermittently for the past 3-4 weeks epigastric pain is resolved tolerating clear diet requesting pause on the IVF as she is now feeling more hydrated and the IV in interfering with writing, etc. afebrile Review of Systems Review of Systems: All systems were reviewed and negative except as indicated on HPI above. Physical Exam Physical Exam: CONSTITUTIONAL: obese, vitals as above, generally well-appearing, NAD EYES: normal conjunctivae, no scleral icterus ENT: external ear and nose normal, MMM NECK: trachea midline RESPIRATORY: clear to auscultation bilaterally, no crackles, rales or wheezes, normal respiratory effort CARDIOVASCULAR: regular rate and rhythm, S1 and 2 heard without murmurs, gallops or rubs, no JVD, no peripheral edema CHEST: inspection of chest was normal GASTROINTESTINAL: soft, NT, nondistended, no guarding (limited exam as patient was sitting upright in the chair) MUSCULOSKELETAL: strength 5/5 throughout, head is normocephalic and atraumatic SKIN: warm and dry NEUROLOGIC: CN 2-12 grossly intact, no sensory deficit, normal cognition, normal speech, no tremor PSYCHIATRIC: alert cooperative and oriented to person, place and time. Euthymic mood, makes good eye contact, language grossly intact, recent and remote memory grossly intact. Results & Data Results & Data Vital Signs (Past 12 Hours) Vital Signs Temp Pulse Resp BP Pulse Ox O2 Del Method 04/01/23 07:33 37.2 C 74 18 128/84 95 Room Air Laboratory Results Short CBC 04/01/23 Range/Units 05:59 WBC 5.61 (4.8-10.8) K/ul Hgb 12.8 (12.0-16.0) g/dl Hct 38.8 (37.0-47.0) % Plt Count 235 (130-400) K/uL BMP 04/01/23 05:59 Sodium 140 Potassium 4.3 Chloride 109 H Carbon Dioxide 27 BUN 16 Creatinine 0.94 Glucose 71 Calcium 8.0 L Liver Function 04/01/23 Range/Units 05:59 Total Bilirubin 2.4 H (0.2-1.0) mg/dl AST 126 H (13-39) U/L ALT 251 H (7-52) U/L Alkaline Phosphatase 100 (34-104) U/L Albumin 3.3 L (3.4-5.0) gm/dl Urine 03/31/23 Range/Units 10:20 Urine Color Dark Yellow Urine Appearance Cloudy A (Clear) Urine pH 5.0 (4.5-7.5) Ur Specific [place] 1.025 (1.000-1.030) Urine Protein Negative (Negative) Urine Glucose (UA) Negative (Negative) Medications Administered Current Inpatient Medications Acetaminophen (Acetaminophen 500 Mg Tab) 500 mg PO Q6H PRN PRN Reason: pain/fever Stop: 04/30/23 05:57 Enoxaparin Sodium (Enoxaparin Inj 40 Mg/0.4 Ml Syr) 40 mg SQ QAM ERWIN Stop: 04/30/23 11:04 Last Admin: 04/01/23 07:36 Dose: 40 mg Promethazine HCl 12.5 mg/ (Sodium Chloride) 50.5 mls @ 202 mls/hr IV Q6H PRN PRN Reason: Nausea And Vomiting Stop: 04/30/23 05:57 Ceftriaxone Sodium 2,000 mg/ (Dextrose) 70 mls @ 100 mls/hr IV Q24H [facility]; Protocol Stop: 04/05/23 13:59 Last Infusion: 03/31/23 16:28 Dose: Infused Sodium Chloride (Nss 1000ml) 1,000 mls @ 150 mls/hr IV .Q6H40M [facility] Stop: 04/30/23 13:59 Last Admin: 04/01/23 06:17 Dose: 150 mls/hr Ketorolac Tromethamine (Ketorolac Tromethamine 15 Mg/Ml Vial) 15 mg IV Q6H PRN PRN Reason: Pain Stop: 04/05/23 05:57 Last Admin: 03/31/23 17:30 Dose: 15 mg Lorazepam (Lorazepam 0.5 Mg Tab) 0.5 mg PO TID PRN PRN Reason: Anxiety Stop: 04/30/23 05:57 Oxycodone HCl (Oxycodone Hcl Ir 5 Mg Tab (Immediate Release)) 5 - 10 mg PO QID PRN PRN Reason: Pain Stop: 04/14/23 05:57 Pantoprazole Sodium (Pantoprazole 40 Mg Tab) 40 mg PO QPM [facility] Stop: 04/30/23 20:59 Last Admin: 03/31/23 17:48 Dose: 40 mg
--- NOTE | 2023-04-01 09:57 | Gastroenterology Progress Note ---
Date of Service April 01, 2023 Assessment & Plan (1) Elevated LFTs: Plan: Agree with plans. LFT's are trending down so doubt ERCP will be needed but will see on tomorrow's labs Admission and Anticipated Discharge Date Admission Date: March 31, 2023 Subjective Patient feels pretty good. Met with surgeon, on schedule for tomorrow--with ERCP if LFT's trend up. Without ERCP if they continue downward trend Physical Exam Physical Exam: She looks well Results & Data Vital Signs (Past 12 Hours) Vital Signs Temp Pulse Resp BP Pulse Ox O2 Del Method 04/01/23 07:33 37.2 C 74 18 128/84 95 Room Air
[2023-04-01] MEDS: cefTRIAXone SODIUM 2,000 MG in DEXTROSE 5% 50 ML IV SCH (15:15)
[2023-04-01] MEDS: PANTOprazole 40 MG TAB PO SCH (23:20)
[2023-04-02 07:05] LABS: Albumin Level 3.5 gm/dl (3.4-5.0); Bilirubin Direct 0.4 mg/dl (0-0.2); Bilirubin,Total 1.2 mg/dl (0.2-1.0); Total Protein 6.4 gm/dl (6.0-8.3)
--- NOTE | 2023-04-02 07:41 | Anesthesiology Consultation ---
Date of Service April 02, 2023 History Surgery Operation Date: 04/02/23 08:20 Proposed Procedures p Laparoscopic Cholecystectomy Possible Cholangiogram - Timothy Mendoza, DO, FACS Height/Weight Height: 5 ft 5 in Weight: 100.9 kg Allergies Allergy/AdvReac Type Severity Reaction Status Date / Time kiwi Allergy Severe THROAT Verified 03/31/23 00:22 SWELLS DATES Allergy Severe THROAT Uncoded 03/31/23 00:22 SWELLS FIGS Allergy Severe THROAT Uncoded 03/31/23 00:22 SWELLS Medications Home Medications Medication Instructions Recorded Confirmed Last Taken omeprazole magnesium 20 mg 20 mg PO QPM 03/31/23 03/31/23 03/30/23 tablet,delayed release (Prilosec OTC) Active Medications Generic Name Dose Route Start Last Admin Trade Name Freq PRN Reason Stop Dose Admin Enoxaparin Sodium 40 mg 03/31/23 11:05 04/01/23 07:36 Enoxaparin Inj 40 Mg/0.4 Ml Syr SQ 04/30/23 11:04 40 mg QAM ERWIN Administration Ceftriaxone Sodium 2,000 mg/ 70 mls @ 100 mls/hr 03/31/23 14:00 04/01/23 15:55 Dextrose IV 04/05/23 13:59 Infused Q24H ERWIN Infusion Protocol Ketorolac Tromethamine 15 mg 03/31/23 05:58 03/31/23 17:30 Ketorolac Tromethamine 15 Mg/Ml Vial IV 04/05/23 05:57 15 mg Q6H PRN Administration Pain Pantoprazole Sodium 40 mg 03/31/23 21:00 04/01/23 23:20 Pantoprazole 40 Mg Tab PO 04/30/23 20:59 40 mg QPM ERWIN Administration Past Medical History Medical History (Updated 04/02/23 @ 07:41 by Shaquille Wong MD) Obesity Social History Smoking Status: Never smoker Do You Dip or Chew Tobacco: No Hx Alcohol Use: No Hx Substance Use: No Physical Exam Vital Signs Last Vital Signs Temp 36.6 C 04/01/23 21:26 Pulse 70 04/01/23 21:26 Resp 16 04/01/23 21:26 BP 134/83 04/01/23 21:26 Pulse Ox 97 04/01/23 21:26 O2 Del Method Room Air 04/01/23 21:26 Testing Laboratory Results 04/01/23 05:59 04/01/23 05:59 Hemoglobin A1c 5.8 % (4.5-5.6) H 03/31/23 00:33 Urine Color Dark Yellow 03/31/23 10:20 Urine Appearance Cloudy (Clear) A 03/31/23 10:20 Urine pH 5.0 (4.5-7.5) 03/31/23 10:20 Ur Specific [place] 1.025 (1.000-1.030) 03/31/23 10:20 Urine Protein Negative (Negative) 03/31/23 10:20 Urine Glucose (UA) Negative (Negative) 03/31/23 10:20 Urine Ketones Negative (Negative) 03/31/23 10:20 Urine Nitrite Positive (Negative) A 03/31/23 10:20 Ur Leukocyte Esterase 2+ (Negative) H 03/31/23 10:20 Urine WBC (Auto) 10-30 /hpf (0-5) H 03/31/23 10:20 Urine RBC (Auto) 0-4 /hpf (0-4) 03/31/23 10:20 U Hyaline Cast (Auto) 1-5 /lpf (0-5) 03/31/23 10:20 U Epithel Cells (Auto) 20-30 /lpf (0-5) H 03/31/23 10:20 Urine Bacteria (Auto) 4+ (Negative) H 03/31/23 10:20 03/31/23 10:20 Urine Culture - Preliminary Urine,Clean Catch Escherichia coli 03/31/23 13:56 Aerobic Blood Culture - Preliminary Blood No growth in Aerobic bottle after 24 hours. Anaerobic Blood Culture - Preliminary No growth in Anaerobic bottle after 24 hours. 03/31/23 14:22 Aerobic Blood Culture - Preliminary Blood No growth in Aerobic bottle after 24 hours. Anaerobic Blood Culture - Preliminary No growth in Anaerobic bottle after 24 hours.
[2023-04-02] MEDS: ENOXAPARIN INJ 40 MG/0.4 ML SYR SQ SCH (10:19)
--- NOTE | 2023-04-02 10:30 | Gastroenterology Progress Note ---
Date of Service April 02, 2023 Assessment & Plan (1) Cholelithiasis: (2) Elevated LFTs: Plan: Pt is a 62 yo female w upper abd pain, nausea, elevated LFTs, noted to have cholelithiasis on US, dilated CBD but no sign of choledocholithiasis on MRCP. Abd exam benign today wo pain, BS +, non distended LFTs trending down. She is scheduled for lap amira today w IOC. If IOC positive, we will be involved in her case again for ERCP, otherwise pls recall PRN Admission and Anticipated Discharge Date Admission Date: March 31, 2023 Supervising Physician Co-Signing Physician Notes Patient was seen and examined on 04/02 with JUAN Taylor whose note reflects our findings and plan. LFTs improved. MRCP was negative. Patient to have amira with IOC. Please call if IOC is positive. Patient aware Subjective LFTs trending down. Pt denies abd pain, n/v. NPO for scheduled lap amira in OR later today Review of Systems Review of Systems: All systems reviewed & are unremarkable except as noted in HPI & below Physical Exam Constitutional: WD/WN, vitals as above well groomed, cooperative and comfortable Eyes: PERRL, conjunctivae normal, anicteric sclerae ENMT: external ear and nose normal, oropharynx normal Respiratory: normal respiratory effort, lungs clear to auscultation Cardiovascular: RRR, no murmur, no edema Gastrointestinal (Abdomen): normal bowel sounds, soft, nontender, no hepatosplenomegaly Skin: no rashes, warm and dry no jaundice Psychiatric: A+Ox3, euthymic affect Lymphatic: no lymphedema Results & Data Vital Signs (Past 12 Hours) Vital Signs Temp Pulse Resp BP Pulse Ox O2 Del Method 04/02/23 08:11 36.6 C 74 16 143/86 H 95 Room Air
[2023-04-02] MEDS ORDERED: LIDOCAINE 2% 2 ML VIAL/AMP(20MG/ML) INFIL ONE ×2 (10:45→13:19)
[2023-04-02] MEDS ORDERED: MIDAZOLAM HCL 1 MG/ML 2ML VIAL ONE (10:45)
[2023-04-02] MEDS ORDERED: fentaNYL citrate PF 100 MCG/2 ML VIAL ONE ×2 (10:45→12:54)
[2023-04-02] MEDS ORDERED: PROPOFOL IV EMULSION 10 MG/ML 20 ML VIAL IV ONE (10:45)
[2023-04-02] MEDS ORDERED: ROCURONIUM BROMIDE 10 MG/ML 5 ML VIAL IV ONE ×2 (10:46→12:26)
[2023-04-02] MEDS ORDERED: ACETAMINOPHEN 1000 MG/100 ML IV IV ONE (10:50)
[2023-04-02] MEDS ORDERED: FAMOTIDINE/PF 20 MG/2 ML VIAL IV ONE (10:51)
[2023-04-02] MEDS ORDERED: ONDANSETRON INJ 2 MG/ML 2 ML VIAL IV PRN ×2 (10:56→14:15)
[2023-04-02] MEDS ORDERED: ATROPINE SULFATE 0.1 MG/ML 10ML SYR IV PRN (10:56)
[2023-04-02] MEDS ORDERED: HYDROmorphone INJ 2 MG/ML SYR/VIAL IV PRN (10:56)
[2023-04-02] MEDS ORDERED: ePHEDrine sulfate 50 MG/ML AMP IV PRN (10:56)
[2023-04-02] MEDS ORDERED: fentaNYL citrate PF 100 MCG/2 ML VIAL IV PRN (10:56)
--- NOTE | 2023-04-02 11:15 | Surgery Progress Note ---
Date of Service April 02, 2023 Assessment & Plan (1) Cholelithiasis: Plan: 62year old female with cholelithiasis, likely passed a small stone. LFTs downtrending. plan for laparoscopic cholecystectomy with possible cholangiogram risks discussed to include but not limited to bleeding, infection, retained stone, bile leak, open surgery, damage to surrounding structures including bile duct, need for future or more extensive surgery, failure to treat symptoms, and risks of anesthesia. (2) Elevated LFTs: (3) Biliary colic: Admission and Anticipated Discharge Date Admission Date: March 31, 2023 Subjective No changes overnight, no significant pain. Physical Exam Constitutional: WD/WN, vitals as above Gastrointestinal (Abdomen): normal bowel sounds, soft, nontender, no hepatosplenomegaly Results & Data Vital Signs (Past 12 Hours) Vital Signs Temp Pulse Resp BP Pulse Ox O2 Del Method 04/02/23 10:33 36.9 C 76 18 164/98 H 100 Room Air 04/02/23 08:11 36.6 C 74 16 143/86 H 95 Room Air Laboratory Results Laboratory Results - last 24 hr 04/02/23 06:16 Total Bilirubin 1.2 H Direct Bilirubin 0.4 H AST 152 H ALT 280 H Alkaline Phosphatase 106 H Total Protein 6.4 Albumin 3.5 PG Care Time/CCT Total # of Minutes Spent Total Time Spent with Patient: Total time spent is greater than 50% in coordination of care (as documented) at patient's floor/unit and/or counseling patient: Coding Level of Care Code 43111 SUB INP/OBS CARE 12/20MIN Diagnoses Cholelithiasis K80.20 Elevated LFTs R79.89 Biliary colic K80.50
[2023-04-02] MEDS ORDERED: cefOXitin 2,000 MG in DEXTROSE 5% 50 ML IV STA (11:18)
[2023-04-02] MEDS ORDERED: BUPIVACAINE 0.5 % 5 MG/1 ML MPF 30ML VIAL ONE (11:19)
[2023-04-02] MEDS ORDERED: ePHEDrine sulfate 50 MG/ML AMP ONE (11:55)
[2023-04-02] MEDS ORDERED: IOVERSOL 50ml IV ONE (12:17)
[2023-04-02] MEDS ORDERED: GLUCAGON FOR INJ 1 MG VIAL ONE (12:23)
[2023-04-02] MEDS ORDERED: SODIUM CHLORIDE 0.9% PF INJ 10 ML VIAL ONE (12:26)
[2023-04-02] MEDS ORDERED: SUGAMMADEX SODIUM 200 MG/2 ML VIAL IV ONE (12:27)
[2023-04-02] MEDS ORDERED: GLUCAGON 1 MG in SYRINGE 0 ML IV ONE (12:27)
[2023-04-02] MEDS ORDERED: KETOROLAC 30 MG/ML VIAL ONE (12:59)
--- NOTE | 2023-04-02 13:09 | Operative Report ---
PG Post Operative Report Pre & Post Diagnosis Operation Date: 04/02/23 08:20 Pre-Op Diagnosis: (1) Cholelithiasis: (2) Elevated LFTs: (3) Biliary colic: Post-Op Diagnosis: (1) Cholelithiasis with acute on chronic cholecystitis (2) choledocholithiasis I identified the patient and participated in the time-out.: Yes Procedure Operation Date: 04/02/23 08:20 Actual Procedures p Laparoscopic Cholecystectomy, with Cholangiogram(Not Applicable) - Timothy Mendoza DO, FACS Surgeon Timothy Mendoza DO, FACS Pump Erector Helper [place]at [place] Estimated Blood Loss 5 Findings Consistent with Post-Op Diagnosis Distended gallbladder, drained with aspiration needle. Evidence of acute and chronic cholecystitis. Critical view of safety obtained, cholangiogram performed showed dilated common bile duct, failure to fill duodenum, and meniscus sign, likely choledocholithiasis. Glucagon administered, after 5 minutes duct was flushed and repeat cholangiogram showed persistent obstruction. Cystic duct and artery doubly clipped and divided, drain left. Specimens Gallbladder Anesthesia Type General Complications none Disposition Accompanied Patient To Recovery: No Disposition: Recovery Room Indications 62-year-old female admitted with cholelithiasis with intractable biliary colic along with elevated liver enzymes. MRCP showed no filling defect, liver enzymes slowly downtrending, GI consulted and recommend cholecystectomy with cholangiogram instead of ERCP. Plan for laparoscopic cholecystectomy with possible cholangiogram. The risks of the procedure were discussed, all questions were answered, and the patient agreed to proceed with surgery as planned. Description of Procedure The patient was properly identified, consented, and taken to the operating room where she was placed in the supine position. General endotracheal anesthesia was induced. SCDs and a safety belt were placed. Preoperative antibiotics were administered. The patient's abdomen was prepped and draped in the standard sterile fashion. A surgical timeout was performed and all parties were in agreement that this was the correct patient and procedure to be performed and we continued as planned. An incision was made superior and to the left of the umbilicus overlying the rectus muscle and the Veress needle was inserted. Saline drop test confirmed entry into the peritoneum. The abdomen was insufflated with carbon dioxide which the patient tolerated without incident. The abdomen was then entered using the Optiview technique and a 5 mm trocar. The laparoscope was inserted and no damage from initial trocar or Veress needle placement was noted, no gross abnormalities were noted within the 4 quadrants of the abdomen. An 11 mm port was placed in the subxiphoid position and two 5 mm ports were then placed in the right subcostal position. The patient was placed in reverse Trendelenburg position and rotated towards the left. The gallbladder was distended and acutely and chronically inflamed. Gallbladder was aspirated to allow for retraction using the aspiration needle. The dome of the gallbladder was retracted towards the left upper quadrant and the infundibulum was retracted toward the right lower quadrant revealing Calot's triangle. Peritoneal attachments were taken down with electrocautery and blunt dissection. The cystic duct and artery were circumferentially dissected. A window of safety was obtained showing the cystic duct entering the gallbladder with no aberrant structures noted. The [facility] cholangiocatheter was then used to perform an intraoperative cholangiogram which showed a dilated common bile duct with failure of contrast to pass into the small bowel. There was also a meniscus sign indicating a likely filling defect. Glucagon was administered by anesthesia and the gallbladder was catheter was flushed with saline. Repeat cholangiogram showed failure of contrast to progress into the small bowel and the persistent filling defect was present. The cystic duct and artery were doubly clipped and divided. The gallbladder was then lifted off the gallbladder fossa with electrocautery. The gallbladder was placed in an Endo Catch bag and removed through the subxiphoid port site. The right upper quadrant was irrigated and hemostasis was found to be good. A 10 mm flat CHELA drain was then placed in the right upper quadrant and exited through the right subcostal incision. 5 mm trochars were removed under direct visualization and the abdomen was allowed to collapse. The subxiphoid port site fascia was closed with 0 Vicryl suture utilizing the Norm-Cecille device prior to removal of the port. The drain was secured with a 2-0 nylon suture. The wound was irrigated, and the skin of all ports was closed with 4-0 Monocryl subcuticular sutures. Dermabond was placed over the wounds. A dressing was placed around the drain. The patient was extubated in the operating room and taken to the PACU where she recovered without apparent incident. All sponge, instrument and needle counts were correct at the conclusion of the procedure. The patient tolerated the procedure well. The physician's staff assistant was present and scrubbed for the entirety of the case and was essential in positioning the patient, prepping and draping, retraction and exposure, driving the laparoscope, removal of the gallbladder, closure the incisions, and placement of the dressings. I attest to the content of the Intraoperative Record and any orders documented therein. Any exceptions are noted below.
[2023-04-02] MEDS ORDERED: DEXAMETHASONE SOD INJ 4 MG/ML VIAL ONE (13:19)
[2023-04-02] MEDS ORDERED: ONDANSETRON INJ 2 MG/ML 2 ML VIAL ONE (13:19)
[2023-04-02] MEDS ORDERED: METOCLOPRAMIDE HCL INJ 5 MG/ML 2 ML VIAL ONE (13:19)
--- NOTE | 2023-04-02 13:26 | Hospitalist Progress Note ---
Date of Service April 02, 2023 Assessment & Plan (1) Epigastric pain: Plan: Presumed 2/2 biliary colic. She underwent Lap amira today intraoperative cholangiogram. Received intraop antibiotics cefoxitin. Concern for choledocholithiasis at level of the ampulla MRCP reveals no obstructive gallstones. No alcohol history. Pancreas divisum on MRCP as a cause for pancreatitis. Pain meds/antiemetics PRN. clear liquids tonight and then NPO after midnight for ERCP in am. (2) Abnormal urinalysis: Plan: Urine culture growing E. Coli, sensitive to Rocephin Continue Rocephin, Day # 3 (3) Pancreas divisum: Plan: New finding on MRCP. Management per GI (4) Elevated LFTs: Plan: 2/2 to above trending down continue to follow, pt to undergo ERCP tomorrow (5) Cholelithiasis: Plan: Noted on imaging Possible ERCP (6) Morbid obesity: Plan: Lifestyle changes recommended for better overall health. Full code Kashifx Dispo-to home after she is cleared by surgery to leave post-operatively . We discussed that she would likely need the week to recover and she is working on getting a physical optics teacher set up to clinical laboratory aide for her this week. Pt was seen and examined in collaboration with Dr. Johnson, please see addendum A total of 45 was spent coordinating, documenting, and providing care for this patient excluding time spent in the performance of separately billed services. This included personally viewing all current laboratories and imaging studies, medication reconciliation, outpatient chart review, and discussion with specialists. Admission and Anticipated Discharge Date Admission Date: March 31, 2023 Supervising Physician Co-Signing Physician Notes I have seen and examined the patient and have discussed the case with the provider above. I agree with the assessment and plan as stated. Doing well post operatively. Just woke up but feels her pain is well managed. No issues. Awaiting ERCP in am. Physical exam with CHELA drain in place and abdominal i ncisions closed and healing well. Otherwise unremarkable. Cont plan as outlined above. DO Lisa Johnson Patient was seen and examined in room 316. Follow-up for biliary colic. She remains n.p.o. and planning to undergo laparoscopic cholecystectomy today. Denies any abdominal pain. She has not had a bowel movement since admission. Typically goes daily. Denies fever, chills, sweats, lightheadedness, dizziness, chest pain, shortness of breath, nausea, vomiting. Review of Systems Review of Systems: All systems reviewed & are unremarkable except as noted in HPI & below Physical Exam Physical Exam: Gen: WD/WN, NAD, A&O x3, sitting up in bedside chair HEENT: Normocephalic, atraumatic, conjunctivae moist, sclerae anicteric, mucous membranes moist. Lung: Clear to Auscultation bilaterally, no wheezes/rales/rhonchi Heart: Regular rate, regular rhythm, no murmurs, rubs, or gallops Abdomen: Soft, NT, ND +BS x 4 Extremities: No edema Skin: Warm, no rash, negative turgor. Results & Data Results & Data Vital Signs (Past 12 Hours) Vital Signs Temp Pulse Resp BP Pulse Ox O2 Del Method 04/02/23 10:33 36.9 C 76 18 164/98 H 100 Room Air 04/02/23 08:11 36.6 C 74 16 143/86 H 95 Room Air Medications Administered Current Inpatient Medications Acetaminophen (Acetaminophen 500 Mg Tab) 500 mg PO Q6H PRN PRN Reason: pain/fever Stop: 04/30/23 05:57 Atropine Sulfate (Atropine Sulfate 0.1 Mg/Ml 10ml Syr) 0.5 mg IV Q1M PRN PRN Reason: PACU Use-HR<40 &/or Bradycardi Stop: 04/02/23 18:56 Enoxaparin Sodium (Enoxaparin Inj 40 Mg/0.4 Ml Syr) 40 mg SQ QAM ERWNI Stop: 04/30/23 11:04 Last Admin: 04/02/23 10:19 Dose: 40 mg Ephedrine Sulfate (Ephedrine Sulfate 50 Mg/Ml Amp) 5 mg IV Q5M PRN PRN Reason: PACU Use Only-SBP<90 mmHg Stop: 04/02/23 18:56 Fentanyl Citrate (Fentanyl Citrate Pf 100 Mcg/2 Ml Vial) 50 mcg IV Q5M PRN PRN Reason: PACU Use Only-Pain Stop: 04/02/23 18:56 Hydromorphone HCl (Hydromorphone Inj 2 Mg/Ml Syr/Vial) 0.5 mg IV Q5M PRN PRN Reason: PACU Use Only-Pain Stop: 04/02/23 18:56 Promethazine HCl 12.5 mg/ (Sodium Chloride) 50.5 mls @ 202 mls/hr IV Q6H PRN PRN Reason: Nausea And Vomiting Stop: 04/30/23 05:57 Ceftriaxone Sodium 2,000 mg/ (Dextrose) 70 mls @ 100 mls/hr IV Q24H ERWIN; Protocol Stop: 04/05/23 13:59 Last Infusion: 04/01/23 15:55 Dose: Infused Indomethacin (Indomethacin 50 Mg Supp) 100 mg OK ONE ONE Stop: 04/03/23 13:19 Ketorolac Tromethamine (Ketorolac Tromethamine 15 Mg/Ml Vial) 15 mg IV Q6H PRN PRN Reason: Pain Stop: 04/05/23 05:57 Last Admin: 03/31/23 17:30 Dose: 15 mg Lorazepam (Lorazepam 0.5 Mg Tab) 0.5 mg PO TID PRN PRN Reason: Anxiety Stop: 04/30/23 05:57 Ondansetron HCl (Ondansetron Inj 2 Mg/Ml 2 Ml Vial) 4 mg IV ONCE PRN PRN Reason: PACU Use Only-Nausea/Vomiting Stop: 04/02/23 18:56 Oxycodone HCl (Oxycodone Hcl Ir 5 Mg Tab (Immediate Release)) 5 - 10 mg PO QID PRN PRN Reason: Pain Stop: 04/14/23 05:57 Pantoprazole Sodium (Pantoprazole 40 Mg Tab) 40 mg PO QPM ERWIN Stop: 04/30/23 20:59 Last Admin: 04/01/23 23:20 Dose: 40 mg
[2023-04-02] MEDS ORDERED: MoRPHine SULFATE 2 MG/ML CARP IV PRN (14:15)
[2023-04-02] MEDS ORDERED: MoRPHine SULFATE 4 MG/ML 1 ML CARP\\VIAL IV PRN (14:15)
--- NOTE | 2023-04-02 14:27 | Anesthesiology Progress Note ---
Date of Service April 02, 2023 Anesthesia Post Procedure Vital Signs Vital Signs: Temp Pulse Pulse Resp BP BP Pulse Ox 04/02/23 13:45 36.6 C 85 12 136/72 94 04/02/23 13:35 36.6 C 83 12 132/73 97 04/02/23 13:30 85 15 137/72 97 04/02/23 13:20 87 18 138/77 98 04/02/23 13:11 36.6 C 87 23 130/81 99 04/02/23 10:33 36.9 C 76 18 164/98 H 100 04/02/23 08:11 36.6 C 74 16 143/86 H 95 04/01/23 21:26 36.6 C 70 16 134/83 97 04/01/23 18:09 36.9 C 88 18 144/81 H 100 O2 Del Method O2 Flow Rate 04/02/23 13:45 Room Air 04/02/23 13:35 Room Air 04/02/23 13:30 Oxymask 3 04/02/23 13:20 Oxymask 6 04/02/23 13:11 Oxymask 6 04/02/23 10:33 Room Air 04/02/23 08:11 Room Air 04/01/23 21:26 Room Air 04/01/23 18:09 Room Air Pain Intensity Right Abdomen: Pain Intensity: 0 Transfer of Care Handoff Completed per policy Notes Mental Status: alert / awake / arousable and participated in evaluation Patient Amnestic to Procedure: Yes Nausea / Vomiting: adequately controlled Pain: adequately controlled Airway Patency, RR, SpO2: stable & adequate BP & HR: stable & adequate Hydration State: stable & adequate Anesthetic Complications: no major complications apparent and Pt Satisfied with anesthetic care
--- NOTE | 2023-04-02 15:47 | Fluoroscopy Report ---
INTRAOPERATIVE RADIOGRAPHS CLINICAL HISTORY: Intraoperative cholangiogram Fluoro time: 1 minute 11 seconds. Ka,r: 12.65 mGy FINDINGS: 4 spot fluoroscopic views of the right upper quadrant from intraoperative cholangiogram wer e correlated with MRCP dated 03/31/2023. The gallbladder is surgically absent. The common bile duct is dilated. A meniscus is seen at the ampulla, likely representing choledocholithiasis. There is no pass age of contrast into the duodenum. IMPRESSION: Intraoperative images show dilatation of the common bile duct with probable choledocholit hiasis at the ampulla. Electronically signed by: Inocencio Jerome M.D. 04/02/2023 3:44 PM
[2023-04-02] MEDS: cefTRIAXone SODIUM 2,000 MG in DEXTROSE 5% 50 ML IV SCH (15:53)
[2023-04-02] MEDS: PANTOprazole 40 MG TAB PO SCH (21:18)
[2023-04-03] MEDS ORDERED: SODIUM CHLORIDE 0.9% 1000ML 1,000 ML IV ONE (04:11)
[2023-04-03 05:16] LABS: Basophils # (auto) 0.04 K/uL (0-0.2); Basophils % (auto) 0.5 %; Eosinophils # (auto) 0.01 K/uL (0-0.50); Eosinophils % (auto) 0.1 %; Hematocrit (blood only) 40.1 % (37.0-47.0); Hemoglobin 13.5 g/dl (12.0-16.0); Immature Granulocytes # (auto) 0.02 K/uL (0.01-0.20); Immature Granulocytes % (auto) 0.2 %; Lymphocytes # (auto) 1.68 K/uL (1.2-3.4); Mean Corpuscular Hemoglobin 30.3 pg (25.0-34.0); Mean Corpuscular Hgb Conc 33.7 g/dL (32.0-36.0); Mean Corpuscular Volume 89.9 fL (80.0-100.0); Mean Platelet Volume 9.4 fL (9.4-12.4); Monocytes % (auto) 9.1 %; Neutrophils # (auto) 6.28 K/uL (1.40-6.50); Neutrophils % (auto) 71.1 %; Platelet Count 248 K/uL (130-400); RDW Coefficient of Variation 12.7 % (11.5-14.5); Red Blood Count 4.46 M/uL (4.20-5.40); White Blood Count 8.83 K/ul (4.8-10.8)
[2023-04-03 05:19] LABS: Albumin Globulin Ratio 1.1 (0.9-2); Albumin Level 3.6 gm/dl (3.4-5.0); Bilirubin,Total 2.2 mg/dl (0.2-1.0); Calcium 8.9 mg/dl (8.6-10.3); Creatinine Clr Calc Pharmacy 69.5 ml/min; Est GFR (African American) 70.4 ml/min; Est GFR (Non-African American) 60.8 ml/min; Globulin 3.2 gm/dl (2.5-4.0); Magnesium 1.9 mg/dl (1.7-2.4); Potassium 3.6 mmol/L (3.5-5.1); Total Protein 6.8 gm/dl (6.0-8.3)
--- NOTE | 2023-04-03 08:35 | Surgery Progress Note ---
Date of Service April 03, 2023 Assessment & Plan (1) Acute cholecystitis: Plan: POD#1 lap amira w/ IOC, confirmed filling defect WBC 8, Hbg 13.5, LFTs uptrending Tb 2.2(1.2), AST 237(152), ALT: 377 (280), AlkP 113(110) Patient is currently NPO for ERCP with GI today JODIE drain currently serosang.. plan to continue for now Diet advancement per GI after ERCP, from our standpoint may resume regular diet (2) Choledocholithiasis: Admission and Anticipated Discharge Date Admission Date: March 31, 2023 Supervising Physician Co-Signing Physician Notes Pnt S&E, labs reviewed, agree with above. POD#1 lap amira with IOC showing choledocholithiasis. Feeling well, abd sore, tolerated clears. afvss, incision with no infection, jodie ss. wbc normal, lfts up from yesterday. GI planning on ERCP today. Subjective Patient is feeling well. Pain controlled. Was tolerating liquids without nausea/vomiting yesterday. No complaints this AM. Aware she is to go for ERCP today. Physical Exam Physical Exam: awake/alert, no distress Respiratory: normal respiratory effort Gastrointestinal (Abdomen): Inspection/Auscultation: + abdominal surgical incision (c/d/i with skin glue, mild ecchymosis of epigastric incision, no infection) and + abdominal surgical drain present (serosang. ); abdomen not distended Results & Data Vital Signs (Past 12 Hours) Vital Signs Temp Pulse Resp BP Pulse Ox O2 Del Method 04/03/23 07:35 36.7 C 79 16 131/85 96 Room Air 04/03/23 03:21 36.8 C 69 16 139/77 96 Room Air 04/03/23 03:46 59 L 111/78 04/03/23 03:39 57 L 04/03/23 03:30 36.8 C 49 L 105/71 94 Room Air 04/02/23 21:20 Room Air 04/02/23 23:12 36.7 C 71 16 119/76 95 Room Air PG Care Time/CCT Total # of Minutes Spent Total Time Spent with Patient: Total time spent is greater than 50% in coordination of care (as documented) at patient's floor/unit and/or counseling patient: Coding Level of Care Code 19565 Post Operative Follow-Up Diagnoses Acute cholecystitis K81.0 Choledocholithiasis K80.50
--- NOTE | 2023-04-03 12:20 | Hospitalist Progress Note ---
Date of Service April 03, 2023 Assessment & Plan (1) Epigastric pain: Plan: Presumed 2/2 biliary colic. She underwent Lap amira 04/02/23 with intraoperative cholangiogram. Received intraop antibiotics cefoxitin. Concern for choledocholithiasis at level of the ampulla MRCP reveals no obstructive gallstones. No alcohol history. Pancreas divisum on MRCP as a cause for pancreatitis. Pain meds/antiemetics PRN. Tolerated clears last night, incisions look good, CHELA drain in place NPO, ERCP for today Surgery said ok to resume regular diet from their standpoint post procedure, but will let up to GI (2) Abnormal urinalysis: Plan: Urine culture growing E. Coli, sensitive to Rocephin Continue Rocephin, Day # 4 (3) Pancreas divisum: Plan: New finding on MRCP. Management per GI (4) Elevated LFTs: Plan: 2/2 to above trending up this morning, likely 2/2 procedure ERCP today, follow CMP (5) Cholelithiasis: Plan: Noted on imaging ERCP today (6) Morbid obesity: Plan: Lifestyle changes recommended for better overall health. Full code Lovenox Dispo-to home after she is cleared by surgery and GI to leave post-operatively . We discussed that she would likely need the week to recover and she is working on getting a cda teacher set up to nursing surgical services director for her this week. Pt was seen and examined in collaboration with Dr. Johnson, please see addendum A total of 45 was spent coordinating, documenting, and providing care for this patient excluding time spent in the performance of separately billed services. This included personally viewing all current laboratories and imaging studies, medication reconciliation, outpatient chart review, and discussion with specialists. Admission and Anticipated Discharge Date Admission Date: March 31, 2023 Supervising Physician Co-Signing Physician Notes I have seen and examined the patient and have discussed the case with the provider above. I agree with the assessment and plan as stated. Doing well post operatively. Pain well managed. She has been NPO while awaiting ERCP this afternoon. Physical exam with CHELA drain in place and abdominal incisions closed and healing well. Otherwise unremarkable. Cont plan as outlined above. DO Lisa Johnson Patient was seen and examined in room 316. Follow-up lap amira. She denies any abdominal pain and was tolerating liquids last evening. Plan for ERCP today. She states surgery felt she could probably go tomorrow. She denies any nausea, vomiting, fever, chills, sweats, chest pain or shortness of breath. Physical Exam Physical Exam: Gen: WD/WN, NAD, A&O x3, lying in bed HEENT: Normocephalic, atraumatic, conjunctivae moist, sclerae anicteric, mucous membranes moist. Lung: Clear to Auscultation bilaterally, no wheezes/rales/rhonchi Heart: Regular rate, regular rhythm, no murmurs, rubs, or gallops Abdomen: Soft, NT, ND +BS x 4, laparoscopic incisions present, clean and dry no surrounding erythema, CHELA drain right upper quadrant place with serosanguineous drainage Extremities: No edema Skin: Warm, no rash, negative turgor. Results & Data Results & Data Vital Signs (Past 12 Hours) Vital Signs Temp Pulse Pulse Resp BP Pulse Ox O2 Del Method 04/03/23 11:07 36.6 C 75 75 16 133/78 95 Room Air 04/03/23 07:35 36.7 C 79 16 131/85 96 Room Air 04/03/23 03:21 36.8 C 69 16 139/77 96 Room Air 04/03/23 03:46 59 L 111/78 04/03/23 03:39 57 L 04/03/23 03:30 36.8 C 49 L 105/71 94 Room Air Laboratory Results Short CBC 04/03/23 Range/Units 04:37 WBC 8.83 (4.8-10.8) K/ul Hgb 13.5 (12.0-16.0) g/dl Hct 40.1 (37.0-47.0) % Plt Count 248 (130-400) K/uL BMP 04/03/23 04:37 Sodium 141 Potassium 3.6 Chloride 104 Carbon Dioxide 28 BUN 10 Creatinine 1.00 Glucose 115 H Calcium 8.9 Liver Function 04/03/23 Range/Units 04:37 Total Bilirubin 2.2 H D (0.2-1.0) mg/dl Direct Bilirubin 1.0 H (0-0.2) mg/dl AST 237 H (13-39) U/L ALT 377 H (7-52) U/L Alkaline Phosphatase 113 H (34-104) U/L Albumin 3.6 (3.4-5.0) gm/dl Medications Administered Current Inpatient Medications Acetaminophen (Acetaminophen 500 Mg Tab) 500 mg PO Q6H PRN PRN Reason: pain/fever Stop: 04/30/23 05:57 Enoxaparin Sodium (Enoxaparin Inj 40 Mg/0.4 Ml Syr) 40 mg SQ QAM ERWIN Stop: 04/30/23 11:04 Last Admin: 04/02/23 10:19 Dose: 40 mg Ceftriaxone Sodium 2,000 mg/ (Dextrose) 70 mls @ 100 mls/hr IV Q24H ERWIN; Protocol Stop: 04/05/23 13:59 Last Infusion: 04/02/23 16:45 Dose: Infused Sodium Chloride (Nss 1000ml) 1,000 mls @ 100 mls/hr IV .Q10H ONE Stop: 04/03/23 14:10 Last Admin: 04/03/23 05:21 Dose: 100 mls/hr Indomethacin (Indomethacin 50 Mg Supp) 100 mg TX ONE ONE Stop: 04/03/23 13:19 Lorazepam (Lorazepam 0.5 Mg Tab) 0.5 mg PO TID PRN PRN Reason: Anxiety Stop: 04/30/23 05:57 Morphine Sulfate (Morphine Sulfate 2 Mg/Ml Carp) 2 mg IV Q2H PRN PRN Reason: Moderate Pain (Scale 4, 5, 6) Stop: 04/16/23 14:14 Morphine Sulfate (Morphine Sulfate 4 Mg/Ml 1 Ml Carp\Vial) 4 mg IV Q2H PRN PRN Reason: Severe Pain (Scale 7, 8, 9,10) Stop: 04/16/23 14:14 Ondansetron HCl (Ondansetron Inj 2 Mg/Ml 2 Ml Vial) 4 mg IV Q6H PRN PRN Reason: Nausea And Vomiting Stop: 05/02/23 14:14 Oxycodone HCl (Oxycodone Hcl Ir 5 Mg Tab (Immediate Release)) 5 - 10 mg PO QID PRN PRN Reason: Pain Stop: 04/14/23 05:57 Last Admin: 04/02/23 22:27 Dose: 5 mg Pantoprazole Sodium (Pantoprazole 40 Mg Tab) 40 mg PO QPM ERWIN Stop: 04/30/23 20:59 Last Admin: 04/02/23 21:18 Dose: 40 mg
--- NOTE | 2023-04-03 12:33 | Gastroenterology Progress Note ---
Date of Service April 03, 2023 Assessment & Plan (1) Cholelithiasis: (2) Elevated LFTs: Plan: Pt is a 62 yo female w upper abd pain, nausea, elevated LFTs, noted to have cholelithiasis on US, dilated CBD but no sign of choledocholithiasis on MRCP. She underwent lap amira w CHELA drain placement yesterday. Intraop cholangiogram with choledocholithiasis probable in the ampulla. - Keep NPO - Continue Ceftriaxone IV - Trend LFTs - OR for ERCP by Dr. Blue today - Surgery following Admission and Anticipated Discharge Date Admission Date: March 31, 2023 Supervising Physician Co-Signing Physician Notes I performed a history and physical examination of the patient today, including specifically on physical exam - soft abdomen. I have discussed the patient's management with the advanced practitioner. Please refer to the nurse practitioner's note for the documented findings and plan of care. ERCP Patient was explained in detail regarding risks, benefits, limitations and alternatives of the above endoscopic procedure. Risks of intravenous sedation used for procedure were also explained. Risks include, but not limited to perforation, bleeding, infection, respiratory distress, cardiac arrest and . Patient is also aware about the possibility of missed lesion. Patient's questions were answered. The patient verbalized understanding the information and agreed to undergo the procedure. Subjective Pt reports some abd pain over on R abd area. Denies n/v, not passing flatus or had any BM yet. Review of Systems Review of Systems: All systems reviewed & are unremarkable except as noted in HPI & below Physical Exam Constitutional: WD/WN, vitals as above well groomed, cooperative and comfortable Eyes: PERRL, conjunctivae normal, anicteric sclerae ENMT: external ear and nose normal, oropharynx normal Respiratory: normal respiratory effort, lungs clear to auscultation Cardiovascular: RRR, no murmur, no edema Gastrointestinal (Abdomen): Soft, BS hypoactive, surgery trochar insertion site CDI, RUQ CHELA drain w sangenous fluid Skin: no rashes, warm and dry no jaundice Psychiatric: A+Ox3, euthymic affect Lymphatic: no lymphedema Results & Data Vital Signs (Past 12 Hours) Vital Signs Temp Pulse Pulse Resp BP Pulse Ox O2 Del Method 04/03/23 11:07 36.6 C 75 75 16 133/78 95 Room Air 04/03/23 07:35 36.7 C 79 16 131/85 96 Room Air 04/03/23 03:21 36.8 C 69 16 139/77 96 Room Air 04/03/23 03:46 59 L 111/78 04/03/23 03:39 57 L 04/03/23 03:30 36.8 C 49 L 105/71 94 Room Air
[2023-04-03] MEDS ORDERED: INDOMETHACIN 50 MG SUPP PR ONE ×2 (13:18→15:58)
[2023-04-03] MEDS: cefTRIAXone SODIUM 2,000 MG in DEXTROSE 5% 50 ML IV SCH (14:34)
[2023-04-03] MEDS ORDERED: PROMETHAZINE HCL 6.25 MG in SODIUM CHLORIDE 0.9% 50 ML IV PRN (15:54)
[2023-04-03] MEDS ORDERED: ATROPINE SULFATE 0.1 MG/ML 10ML SYR IV PRN (15:54)
[2023-04-03] MEDS ORDERED: ONDANSETRON INJ 2 MG/ML 2 ML VIAL IV PRN (15:54)
[2023-04-03] MEDS ORDERED: fentaNYL citrate PF 100 MCG/2 ML VIAL IV PRN (15:54)
[2023-04-03] MEDS ORDERED: GLYCOPYRROLATE 0.2 MG/ML VIAL ONE (16:03)
[2023-04-03] MEDS ORDERED: DEXAMETHASONE SOD INJ 4 MG/ML VIAL ONE ×2 (16:03→16:27)
[2023-04-03] MEDS ORDERED: LIDOCAINE 2% 2 ML VIAL/AMP(20MG/ML) INFIL ONE (16:03)
[2023-04-03] MEDS ORDERED: ONDANSETRON INJ 2 MG/ML 2 ML VIAL ONE (16:03)
[2023-04-03] MEDS ORDERED: PROPOFOL IV EMULSION 10 MG/ML 20 ML VIAL IV ONE (16:03)
[2023-04-03] MEDS ORDERED: NEOSTIGMINE METHYLSULFATE 1 MG/ML 10ML VIAL ONE (16:03)
[2023-04-03] MEDS ORDERED: fentaNYL citrate PF 100 MCG/2 ML VIAL ONE (16:04)
[2023-04-03] MEDS ORDERED: MIDAZOLAM HCL 1 MG/ML 2ML VIAL ONE (16:04)
--- NOTE | 2023-04-03 16:22 | Anesthesiology Consultation ---
Date of Service April 03, 2023 Assessment & Plan Chart Review Chart Review: Acceptable Risk for Surgery ASA ASA2 Proposed Anesthesia Anesthesia Type: General History Surgery Operation Date: 04/02/23 08:20 Proposed Procedures p Laparoscopic Cholecystectomy Possible Cholangiogram - Timothy Mendoza DO, FACS Operation Date: 04/03/23 07:55 Proposed Procedures p Endoscopic Retrograde Cholangiopancreato - Lisbeth Blue MD Height/Weight Height: 5 ft 5 in Weight: 100.9 kg Allergies Allergy/AdvReac Type Severity Reaction Status Date / Time kiwi Allergy Severe THROAT Verified 03/31/23 00:22 SWELLS DATES Allergy Severe THROAT Uncoded 03/31/23 00:22 SWELLS FIGS Allergy Severe THROAT Uncoded 03/31/23 00:22 SWELLS Medications Home Medications Medication Instructions Recorded Confirmed Last Taken omeprazole magnesium 20 mg 20 mg PO QPM 03/31/23 03/31/23 03/30/23 tablet,delayed release (Prilosec OTC) Active Medications Generic Name Dose Route Start Last Admin Trade Name Freq PRN Reason Stop Dose Admin Enoxaparin Sodium 40 mg 03/31/23 11:05 04/02/23 10:19 Enoxaparin Inj 40 Mg/0.4 Ml Syr SQ 04/30/23 11:04 40 mg QAM ERWIN Administration Ceftriaxone Sodium 2,000 mg/ 70 mls @ 100 mls/hr 03/31/23 14:00 04/03/23 15:48 Dextrose IV 04/05/23 13:59 Infused Q24H ERWIN Infusion Protocol Oxycodone HCl 5 - 10 mg 03/31/23 05:58 04/02/23 22:27 Oxycodone Hcl Ir 5 Mg Tab (Immediate Release) PO 04/14/23 05:57 5 mg QID PRN Administration Pain Pantoprazole Sodium 40 mg 03/31/23 21:00 04/02/23 21:18 Pantoprazole 40 Mg Tab PO 04/30/23 20:59 40 mg QPM ERWIN Administration NPO Date Last Intake of Fluids: 04/02/23 Time Last Intake of Fluids: 18:00 Date Last Intake of Solids: 04/03/23 Time Last Intake of Solids: 18:00 Past Medical History Medical History GERD (gastroesophageal reflux disease) Obesity Past Surgical History Surgical History Hx laparoscopic cholecystectomy (04/02/23) Laparoscopic Cholecystectomy, with Cholangiogram(Not Applicable) - Timothy Mendoza DO, FACS No significant past surgical history Social History Smoking Status: Never smoker Do You Dip or Chew Tobacco: No Hx Alcohol Use: No Hx Substance Use: No Physical Exam Vital Signs Last Vital Signs Temp 36.8 C 04/03/23 15:30 Pulse 81 04/03/23 15:30 Resp 14 04/03/23 15:30 BP 171/98 H 04/03/23 15:30 Pulse Ox 98 04/03/23 15:30 O2 Del Method Room Air 04/03/23 15:30 O2 Flow Rate 3 04/02/23 13:30 Testing Laboratory Results 04/03/23 04:37 04/03/23 04:37 Hemoglobin A1c 5.8 % (4.5-5.6) H 03/31/23 00:33 Urine Color Dark Yellow 03/31/23 10:20 Urine Appearance Cloudy (Clear) A 03/31/23 10:20 Urine pH 5.0 (4.5-7.5) 03/31/23 10:20 Ur Specific Cash 1.025 (1.000-1.030) 03/31/23 10:20 Urine Protein Negative (Negative) 03/31/23 10:20 Urine Glucose (UA) Negative (Negative) 03/31/23 10:20 Urine Ketones Negative (Negative) 03/31/23 10:20 Urine Nitrite Positive (Negative) A 03/31/23 10:20 Ur Leukocyte Esterase 2+ (Negative) H 03/31/23 10:20 Urine WBC (Auto) 10-30 /hpf (0-5) H 03/31/23 10:20 Urine RBC (Auto) 0-4 /hpf (0-4) 03/31/23 10:20 U Hyaline Cast (Auto) 1-5 /lpf (0-5) 03/31/23 10:20 U Epithel Cells (Auto) 20-30 /lpf (0-5) H 03/31/23 10:20 Urine Bacteria (Auto) 4+ (Negative) H 03/31/23 10:20 03/31/23 13:56 Aerobic Blood Culture - Preliminary Blood No growth in Aerobic bottle after 48 hours. Anaerobic Blood Culture - Preliminary No growth in Anaerobic bottle after 48 hours. 03/31/23 14:22 Aerobic Blood Culture - Preliminary Blood No growth in Aerobic bottle after 48 hours. Anaerobic Blood Culture - Preliminary No growth in Anaerobic bottle after 48 hours. 03/31/23 10:20 Urine Culture - Final Urine,Clean Catch Escherichia coli
--- NOTE | 2023-04-03 16:45 | Operative Report ---
Post Operative Report Pre & Post Diagnosis Operation Date: 04/03/23 07:55 Pre-Op Diagnosis: Cholelithiasis Post-Op Diagnosis: Choledolcolithiasis. I identified the patient and participated in the time-out.: Yes Procedure Operation Date: 04/03/23 07:55 Actual Procedures p Endoscopic Retrograde Cholangiopancreatography with stent placement.(Not Applicable) - Lisbeth Blue MD Surgeon Lisbeth Blue MD Quality Control Microbiology Supervisor Montserrat Walton Estimated Blood Loss 5 Findings See Below (CBD stone removed, stent placed) Specimens None Description of Procedure ERCP I attest to the content of the Intraoperative Record and any orders documented therein. Any exceptions are noted below.
--- NOTE | 2023-04-03 16:51 | GI REPORT ---
Patient Name: Dilcia Samson Procedure Date: 04/03/2023 3:44 PM Date of : 1960 Admit Type: Inpatient Age: 62 Gender: Female Attending MD: Lisbeth Blue MD, Procedure: ERCP Providers: Lisbeth Blue MD Referring MD: Beatriz Johnson Do Indications: Filling defect on intraoperative cholangiogram, For therapy of bile duct stone(s) Medicines: General Anesthesia Complications: No immediate complications. Estimated Blood Loss: Estimated blood loss: none. Procedure: Pre-Anesthesia Assessment: - Prior to the procedure, a History and Physical was performed, and patient medications, allergies and sensitivities were reviewed. The patient's tolerance of previous anesthesia was reviewed. - The risks and benefits of the procedure and the sedation options and risks were discussed with the patient. All questions were answered and informed consent was obtained. - Patient identification and proposed procedure were verified prior to the procedure by the physician and the nurse. The procedure was verified in the procedure room. - Pre-procedure physical examination revealed no contraindications to sedation. After obtaining informed consent, the scope was passed under direct vision. Throughout the procedure, the patient's blood pressure, pulse, and oxygen saturations were monitored continuously. The Duodenoscope was introduced through the mouth, and advanced to the duodenum and used to inject contrast into the bile duct. The ERCP was accomplished without difficulty. The patient tolerated the procedure well. Findings: A char filter operator film of the abdomen was obtained. Surgical clips, consistent with a previous cholecystectomy, were seen in the area of the right upper quadrant of the abdomen. A char filter operator film of the abdomen was obtained. One percutaneous drain ending in the Right upper quadrant was seen. The esophagus was successfully intubated under direct vision. The scope was advanced to a normal major papilla in the descending duodenum without detailed examination of the pharynx, larynx and associated structures, and upper GI tract. The upper GI tract was grossly normal. A 0.025 inch x 270 cm angled Visiglide wire was passed into the biliary tree. The short-nosed traction sphincterotome was passed over the guidewire and the bile duct was then deeply cannulated. Contrast was injected. I personally interpreted the bile duct images. Ductal flow of contrast was adequate. Image quality was adequate. Contrast extended to the main bile duct. Opacification of the entire biliary tree except for the gallbladder was successful. The maximum diameter of the ducts was 9 mm. Biliary sphincterotomy was made with a monofilament traction (standard) sphincterotome using ERBE electrocautery. There was no post-sphincterotomy bleeding. The biliary tree was swept with a 12 mm balloon starting at the bifurcation. Sludge was swept from the duct. One stone was removed. No stones remained. One 7 Fr by 7 cm plastic biliary stent with a single external pigtail and a single internal pigtail was placed into the common bile duct. Bile flowed through the stent. The stent was in good position. Indomethacin 100 mg was given via suppository to decrease the risk of post-ERCP pancreatitis (PEP). Impression: - Choledocholithiasis was found. Complete removal was accomplished by biliary sphincterotomy and balloon extraction. - One plastic biliary stent was placed into the common bile duct. Recommendation: - [facility]. - Repeat ERCP in 2 months to remove stent. Lisbeth Blue MD 04/03/2023 4:51:16 PM This report has been signed electronically. Note Initiated On: 04/03/2023 3:44 PM Number of Addenda: 0 I attest to the content of the Intraoperative Record and orders documented therein, exceptions below {[id number]}
[2023-04-03] MEDS ORDERED: ROCURONIUM BROMIDE 10 MG/ML 5 ML VIAL IV ONE (17:04)
[2023-04-03] MEDS ORDERED: LARYING-O-JET KIT (LTA) ONE (17:04)
[2023-04-03] MEDS ORDERED: SUCCINYLCHOLINE CHLORIDE 20 MG/ML 10 ML VIAL IV ONE (17:04)
--- NOTE | 2023-04-03 18:37 | Anesthesiology Progress Note ---
Date of Service April 03, 2023 Anesthesia Post Procedure Vital Signs Vital Signs: Temp Pulse Pulse Resp BP BP Pulse Ox 04/03/23 18:05 7 L 16 165/92 H 96 04/03/23 17:40 37.1 C 70 16 164/97 H 100 04/03/23 17:20 36.2 C L 82 20 152/85 H 99 04/03/23 17:10 78 14 152/90 H 99 04/03/23 17:00 77 13 147/84 H 100 04/03/23 16:53 36.0 C L 85 16 152/90 H 98 04/03/23 15:30 36.8 C 81 14 171/98 H 98 04/03/23 14:26 36.6 C 76 16 137/83 100 04/03/23 11:07 36.6 C 75 75 16 133/78 95 04/03/23 07:35 36.7 C 79 16 131/85 96 04/03/23 03:21 36.8 C 69 16 139/77 96 04/03/23 03:46 59 L 111/78 04/03/23 03:39 57 L 04/03/23 03:30 36.8 C 49 L 105/71 94 04/02/23 21:20 04/02/23 23:12 36.7 C 71 16 119/76 95 04/02/23 19:23 37.0 C 72 16 130/78 96 O2 Del Method O2 Flow Rate 04/03/23 18:05 Room Air 04/03/23 17:40 Room Air 04/03/23 17:20 Room Air 04/03/23 17:10 Room Air 04/03/23 17:00 Oxymask 9 04/03/23 16:53 Oxymask 9 04/03/23 15:30 Room Air 04/03/23 14:26 Room Air 04/03/23 11:07 Room Air 04/03/23 07:35 Room Air 04/03/23 03:21 Room Air 04/03/23 03:46 04/03/23 03:39 04/03/23 03:30 Room Air 04/02/23 21:20 Room Air 04/02/23 23:12 Room Air 04/02/23 19:23 Room Air Pain Intensity Right Abdomen: Pain Intensity: 4 Transfer of Care Handoff Completed per policy Notes Mental Status: alert / awake / arousable Patient Amnestic to Procedure: Yes Nausea / Vomiting: adequately controlled Pain: adequately controlled Airway Patency, RR, SpO2: stable & adequate BP & HR: stable & adequate Hydration State: stable & adequate Anesthetic Complications: no major complications apparent
[2023-04-03] MEDS: PANTOprazole 40 MG TAB PO SCH (19:58)
--- NOTE | 2023-04-03 21:36 | Fluoroscopy Report ---
[place] ERCP biliary ductal CLINICAL HISTORY: for ercp on 04/03 TECHNIQUE: 14 views were obtained with the C-arm in the OR with the above procedure. Total fluoroscop y time was 44.9 seconds. Radiation dose was 17.33 mGy. Comparison: Comparison is made to radiograph of 04/02/2023 FINDINGS/IMPRESSION: Intraoperative images were obtained of ERCP. Visualization of a filling defect i n the distal common bile duct which is less evident at the end of the exam. Please correlate with intraoperative fluoroscopy and operative report. ACT 112: Negative or not required by law. Electronically signed by: John Rodriguez M.D. 04/03/2023 9:34 PM
--- NOTE | 2023-04-04 04:56 | Electrocardiogram Report ---
Test Reason : Blood Pressure : / mmHG Vent. Rate : 070 BPM Atrial Rate : 070 BPM P-R Int : 154 ms QRS Dur : 072 ms QT Int : 410 ms P-R-T Axes : 051 008 025 degrees QTc Int : 442 ms Normal sinus rhythm Possible Inferior infarct , age undetermined Possible Anterior infarct , age undetermined Abnormal ECG No previous ECGs available Confirmed by Jason Abdi ([id number]) on 04/04/2023 4:56:03 AM Referred By: REFERRED SELF Confirmed By:Jason Abdi
--- NOTE | 2023-04-04 05:51 | Electrocardiogram Report ---
Test Reason : Blood Pressure : / mmHG Vent. Rate : 070 BPM Atrial Rate : 070 BPM P-R Int : 138 ms QRS Dur : 078 ms QT Int : 404 ms P-R-T Axes : 011 -05 003 degrees QTc Int : 436 ms Normal sinus rhythm Possible Inferior infarct (cited on or before 02-APR-2023) Abnormal ECG When compared with ECG of 02-APR-2023 09:52, No significant change was found Confirmed by Jason Abdi ([id number]) on 04/04/2023 5:51:20 AM Referred By: REFERRED SELF Confirmed By:Jason Abdi
[2023-04-04 07:25] LABS: Basophils # (auto) 0.01 K/uL (0-0.2); Basophils % (auto) 0.1 %; Eosinophils # (auto) 0.01 K/uL (0-0.50); Eosinophils % (auto) 0.1 %; Hematocrit (blood only) 39.3 % (37.0-47.0); Hemoglobin 12.9 g/dl (12.0-16.0); Immature Granulocytes # (auto) 0.04 K/uL (0.01-0.20); Immature Granulocytes % (auto) 0.4 %; Lymphocytes # (auto) 1.81 K/uL (1.2-3.4); Lymphocytes % (auto) 19.9 %; Mean Corpuscular Hemoglobin 29.7 pg (25.0-34.0); Mean Corpuscular Hgb Conc 32.8 g/dL (32.0-36.0); Mean Corpuscular Volume 90.3 fL (80.0-100.0); Mean Platelet Volume 9.6 fL (9.4-12.4); Monocytes # (auto) 0.74 K/uL (0.11-0.59); Monocytes % (auto) 8.1 %; Neutrophils # (auto) 6.49 K/uL (1.40-6.50); Neutrophils % (auto) 71.4 %; Platelet Count 244 K/uL (130-400); RDW Coefficient of Variation 12.5 % (11.5-14.5); RDW Standard Deviation 41.4 fL (36.4-46.3); Red Blood Count 4.35 M/uL (4.20-5.40)
--- NOTE | 2023-04-04 09:49 | Surgery Progress Note ---
Date of Service April 04, 2023 Assessment & Plan (1) Hx laparoscopic cholecystectomy: Plan: Status postcholecystectomy and ERCP for choledocholithiasis and cholecystitis, doing well. Awaiting LFTs. Follow-up LFTs Remove drain Okay to discharge to home from general surgery standpoint Follow-up in 2 weeks with me in the general surgery clinic Wound care instructions, activity restrictions, and return precautions given (2) Choledocholithiasis: Admission and Anticipated Discharge Date Admission Date: March 31, 2023 Subjective POD #2 lap amira with positive cholangiogram, POD #1 ERCP with removal of stone and stent placement. Feeling much better this morning, no pain. Tolerated diet. Physical Exam Constitutional: WD/WN, vitals as above Gastrointestinal (Abdomen): normal bowel sounds, soft, nontender, no hepatosplenomegaly Inspection/Auscultation: + abdominal surgical incision (No infection) and + abdominal surgical drain present (Serosanguineous) Results & Data Vital Signs (Past 12 Hours) Vital Signs Temp Pulse Resp BP Pulse Ox O2 Del Method 04/04/23 07:19 36.6 C 81 16 113/72 95 Room Air 04/04/23 03:19 36.9 C 74 16 116/74 96 Room Air Laboratory Results Laboratory Results - last 24 hr 04/04/23 04/04/23 06:58 07:00 WBC 9.10 RBC 4.35 Hgb 12.9 Hct 39.3 MCV 90.3 MCH 29.7 MCHC 32.8 RDW Std Deviation 41.4 RDW Coeff of Hayden 12.5 Plt Count 244 MPV 9.6 Immature Gran % (Auto) 0.4 Neut % (Auto) 71.4 Lymph % (Auto) 19.9 Roberts % (Auto) 8.1 Eos % (Auto) 0.1 Baso % (Auto) 0.1 Neut # (Auto) 6.49 Lymph # (Auto) 1.81 Roberts # (Auto) 0.74 H Eos # (Auto) 0.01 Baso # (Auto) 0.01 Immature Gran # (Auto) 0.04 Sodium Pending Potassium Pending Chloride Pending Carbon Dioxide Pending Anion Gap Pending BUN Pending Creatinine Pending Est Cr Clr Drug Dosing Pending Est GFR ( Amer) Pending Est GFR (Non-Af Amer) Pending BUN/Creatinine Ratio Pending Glucose Pending Calcium Pending Total Bilirubin Pending Direct Bilirubin Pending AST Pending ALT Pending Alkaline Phosphatase Pending Total Protein Pending Albumin Pending Globulin Pending Albumin/Globulin Ratio Pending PG Care Time/CCT Total # of Minutes Spent Total Time Spent with Patient: Total time spent is greater than 50% in coordination of care (as documented) at patient's floor/unit and/or counseling patient: Coding Level of Care Code None Diagnoses Hx laparoscopic cholecystectomy Z90.49 Choledocholithiasis K80.50
[2023-04-04 10:11] LABS: Albumin Globulin Ratio 1.1 (0.9-2); Albumin Level 3.4 gm/dl (3.4-5.0); BUN Creatinine Ratio 15.3 (10-20); Bilirubin Direct 0.2 mg/dl (0-0.2); Bilirubin,Total 0.8 mg/dl (0.2-1.0); Calcium 8.5 mg/dl (8.6-10.3); Creatinine Clr Calc Pharmacy 81.8 ml/min; Est GFR (African American) 85.7 ml/min; Potassium 4.1 mmol/L (3.5-5.1); Total Protein 6.4 gm/dl (6.0-8.3)
--- NOTE | 2023-04-04 10:28 | Gastroenterology Progress Note ---
Date of Service April 04, 2023 Assessment & Plan (1) Cholelithiasis: (2) Elevated LFTs: Plan: Pt is a 62 yo female w upper abd pain, nausea, elevated LFTs, noted to have cholelithiasis on US, dilated CBD but no sign of choledocholithiasis on MRCP. She underwent lap amira w CHELA drain placement yesterday. Intraop cholangiogram with choledocholithiasis probable in the ampulla. S/P ERCP w choledocholithiasis removal, biliary sphincterectomy and CBD stent placement. LFTs trending down, she is clinically doing well - Continue antibx coverage for 7 days total - Trend LFTs - Surgery following - Repeat ERCP in 2 months for biliary stent removal - GI to sign off; pls recall prn Admission and Anticipated Discharge Date Admission Date: March 31, 2023 Supervising Physician Co-Signing Physician Notes Patient was seen and examined with JUAN Cox whose note reflects our findings and plan. Subjective Pt denies abd pain, n/v, Tolerated solid breakfast this AM. LFTs trending down Review of Systems Review of Systems: All systems reviewed & are unremarkable except as noted in HPI & below Physical Exam Constitutional: WD/WN, vitals as above well groomed, cooperative and comfortable Eyes: PERRL, conjunctivae normal, anicteric sclerae ENMT: external ear and nose normal, oropharynx normal Respiratory: normal respiratory effort, lungs clear to auscultation Cardiovascular: RRR, no murmur, no edema Gastrointestinal (Abdomen): normal bowel sounds, soft, nontender, no hepatosplenomegaly CHELA drain to RUQ area w sangenous fluid Skin: no rashes, warm and dry no jaundice Psychiatric: A+Ox3, euthymic affect Lymphatic: no lymphedema Results & Data Vital Signs (Past 12 Hours) Vital Signs Temp Pulse Resp BP Pulse Ox O2 Del Method 04/04/23 07:19 36.6 C 81 16 113/72 95 Room Air 04/04/23 03:19 36.9 C 74 16 116/74 96 Room Air
--- NOTE | 2023-04-04 11:43 | Discharge Summary ---
Discharge Summary Date of Service April 04, 2023 Notes For Next Care Provider Patient admitted secondary to biliary colic and elevated LFTs. Underwent laparoscopic cholecystectomy with intraoperative cholangiogram which was positive for obstruction. Following day patient underwent ERCP with stent placement and stone removal. Her LFTs down trended. On day of discharge total bilirubin was 0.8, AST 123 and ALT 293. Medication Changes From Visit Ciprofloxacin 500mg twice daily for additional 2 days. Admission HPI Per Admitting Provider History obtained from patient and records. Medical history significant for GERD, recent diagnosis of cholelithiasis. 6 weeks history of intermittent epigastric discomfort with emesis, somewhat worse after eating. Symptoms worse the last few days. No fever, no chills. No chest pain, no SOB. Patient worried about gallbladder trouble given family history. Patient seen at PCP's office yesterday. Patient sent for outpatient gallbladder ultrasound which showed cholelithiasis, no cholecystitis. Outpatient LFTs showed AST 419, ALT 418, alk phos within normal limits. Patient had not been informed about her outpatient test results. Patient consulted ER for worsening symptoms. Medical History as above Surgical History : None Family History : Gallstones, breast cancer, heart disease, migraine Personal/Social history : Non-smoker, no EtOH intake, [employer] Admission Exam Per Admitting Provider GENERAL: Comfortable, pleasant, obese, looks younger for stated age, no respiratory distress SKIN: Normal color, warm HEENT: [place] palpebral conjunctivae, no ptosis, dry buccal mucosa NECK : Supple, short neck, no tenderness CHEST : CTA, no tenderness HEART : RRR, no obvious murmurs ABDOMEN: Some distention, epigastric tenderness EXTREMITIES : Minimal LE swelling, no LE tenderness, no other conspicuous deformities noted NEUROLOGIC : Coherent, no facial asymmetry, no other gross focality Principal Dx & Hospital Course #1 = Principal Diagnosis (1) Epigastric pain: This is a 62-year-old female who has significant past medical history for GERD who was admitted to hospital secondary to biliary colic and elevated LFTs. She was seen and evaluated by general surgery and gastroenterology. She underwent gallbladder ultrasound which showed concerns for cholelithiasis and dilated CBD. MRCP was performed which was not indicative of choledocholithiasis. On 04/02/2023 she underwent laparoscopic cholecystectomy with intraoperative cholangiogram. Cholangiogram was positive for obstruction. On 04/03/2023 she underwent ERCP by gastroenterology with stone removal, sphincterotomy and stent placement. Her LFTs down trended on day of discharge total bilirubin was 0.8, AST 123 and ALT 293. Incidentally she was found to have a E. coli UTI. She was asymptomatic and received 5-day treatment with IV ceftriaxone. At the recommendation of gastroenterology she will complete additional 2 days of anti biotics upon discharge with ciprofloxacin. On day of discharge she was tolerating regular diet. Her vital signs remained hemodynamically stable. She denied any abdominal pain and abdominal decisions are clean, dry and intact. Of significance pancreatic divisum was noted on MRCP and patient will follow-up with gastroenterology for this. (2) Abnormal urinalysis: (3) Pancreas divisum: (4) Elevated LFTs: (5) Cholelithiasis: (6) Morbid obesity: Discharge Exam Gen: WD/WN, NAD, A&O x3, lying in bed HEENT: Normocephalic, atraumatic, conjunctivae moist, sclerae anicteric, mucous membranes moist. Lung: Clear to Auscultation bilaterally, no wheezes/rales/rhonchi Heart: Regular rate, regular rhythm, no murmurs, rubs, or gallops Abdomen: Soft, NT, ND +BS x 4, laparoscopic incisions present, clean and dry no surrounding erythema, CHELA drain right upper quadrant place with serosanguineous drainage Extremities: No edema Skin: Warm, no rash, negative turgor. Updated Medication List Medication Instructions Recorded Confirmed Type omeprazole magnesium 20 mg 20 mg PO QPM 03/31/23 03/31/23 History tablet,delayed release (Prilosec OTC) ciprofloxacin HCl 500 mg tablet 500 mg PO Q12H #4 tabs 04/04/23 Rx (Cipro) Hospital Stay Data Consultations 03/31/23 05:44 ED Decision to Admit Stat 03/31/23 07:46 Consult Gastroenterology Routine 03/31/23 15:29 Consult General Surgery Routine Procedures Performed Operation Date: 04/03/23 07:55 Actual Procedures p Endoscopic Retrograde Cholangiopancreatography with stent placement.(Not Applicable) - Lisbeth Blue MD Diagnostic Imagining Performed Gallbladder Ultrasound 03/31/23 01:33 Exam(s): US GALLBLADDER EXAM: US Abdomen Limited, Gallbladder CLINICAL HISTORY: Reason for exam: eval for acute gb. TECHNIQUE: Real-time ultrasound of the right upper quadrant with image documentation. COMPARISON: No relevant prior studies available. FINDINGS: Liver: The liver measures 16.3 cm in length. Increased hepatic echogenicity. Findings can be seen with hepatic steatosis. Suspected sparing around the gallbladder. Gallbladder: Gallbladder wall thickness measures 2 mm. Cholelithiasis. Common bile duct: The common duct measures 8 mm in diameter. No stones. No dilation. Pancreas: Unremarkable as visualized. IMPRESSION: 1. Dilated common duct measuring up to 8 mm without evidence of intrahepatic biliary dilatation. Findings may be due to obstruction. Consider MRCP if there is further concern. 2. Cholelithiasis without gross findings to suggest cholecystitis. 3. Hepatic steatosis. Electronically signed by: Niko Hernandez MD 03/31/23 05:36 AM Cholangiopancreatography MRI 03/31/23 07:44 MR MRCP HISTORY: Abnormal LFTs. Abnormal ultrasound. Dilated common bile duct. TECHNIQUE: MRCP of the abdomen was performed without contrast according to standard departmental protocol. COMPARISON STUDY: Abdominal ultrasound 03/31/2023. FINDINGS: The common bile duct remains mildly distended at 8 mm. However, there are no definite filling defects within the common bile duct to suggest choledocholithiasis. There are multiple small gallstones within the neck of the gallbladder. No gallbladder wall thickening. Mild central intrahepatic bile duct dilatation is also noted. Possible pancreas divisum. The main pancreatic duct is normal in caliber. The lung bases are clear. There is a tiny hiatus hernia. No hepatic or splenic masses. The adrenal glands and pancreas unremarkable. No retroperitoneal lymphadenopathy. Normal caliber abdominal aorta. The visualized loops of bowel show no wall thickening or obstruction. IMPRESSION: 1. Mild intra and extra hepatic bile duct dilatation with the common bile duct measuring up to 8 mm. This remains unchanged. No evidence for choledocholithiasis. 2. Cholelithiasis. No gallbladder wall thickening. 3. Possible pancreas divisum. Otherwise, normal caliber main pancreatic duct. ACT 112: Negative or not required by law. Electronically signed by: Edward Tan M.D. 03/31/2023 9:34 AM Cholangiogram,Operative 04/02/23 11:51 INTRAOPERATIVE RADIOGRAPHS CLINICAL HISTORY: Intraoperative cholangiogram Fluoro time: 1 minute 11 seconds. Ka,r: 12.65 mGy FINDINGS: 4 spot fluoroscopic views of the right upper quadrant from intraoperative cholangiogram were correlated with MRCP dated 03/31/2023. The gallbladder is surgically absent. The common bile duct is dilated. A meniscus is seen at the ampulla, likely representing choledocholithiasis. There is no pass age of contrast into the duodenum. IMPRESSION: Intraoperative images show dilatation of the common bile duct with probable choledocholithiasis at the ampulla. Electronically signed by: Inocencio Jerome M.D. 04/02/2023 3:44 PM Endo Retro Cholangiopancreatogram 04/03/23 15:30 [place] ERCP biliary ductal CLINICAL HISTORY: for ercp on 04/03 TECHNIQUE: 14 views were obtained with the C-arm in the OR with the above procedure. Total fluoroscopy time was 44.9 seconds. Radiation dose was 17.33 mGy. Comparison: Comparison is made to radiograph of 04/02/2023 FINDINGS/IMPRESSION: Intraoperative images were obtained of ERCP. Visualization of a filling defect in the distal common bile duct which is less evident at the end of the exam. Please correlate with intraoperative fluoroscopy and operative report. ACT 112: Negative or not required by law. Electronically signed by: John Rodriguez M.D. 04/03/2023 9:34 PM Pending Results Patient Have Any Pending Studies at Discharge: No Discharge Instructions Given to Patient (Per Discharging Provider) MEDICATION CHANGES: Cipro 500mg twice daily for additional 2 days - antibiotic SUMMARY OF TEST RESULTS: You were admitted to hospital secondary to abdominal pain and elevated liver functions. You were found to have inflamed gallbladder and stone in bile duct. You had gallbladder removed and a stent placed in your bile duct with stone re moval. Your liver functions improved. You were found to have a UTI and treated with antibiotics. PENDING TEST RESULTS: Pathology report from gallbladder pending RECOMMENDATIONS FOR FOLLOW-UP: Follow-up with primary care provider as scheduled. Please follow-up with general surgery within 2 weeks. Recommend repeat liver function testing at your primary care appointment. You will need repeat ERCP in 2 months for removal of your stent. Recommend calling Gastroenterology at discharge to obtain this appointment. Recommend follow up with gastroenterology upon discharge. OTHER INSTRUCTIONS: Seek medical attention if you have: * temperature above 101 * chest pain or trouble breathing * abdominal pain, nausea, vomiting * diarrhea, dark stools or bloody stools * any unanswered questions or concerns Call 911 if symptoms are severe. Please take good care of yourself. It has been a pleasure taking care of you. Please take care of yourself. If you have any questions regarding your recent hospitalization please contact [facility] and request maya Zaidaist @ [phone]. Mayra Burnett PA-C Total Time Total Time Spent Total Time Spent (In Minutes): 45 minutes Supervising Physician Co-Signing Physician Notes Patient was seen and examined Agree with findings and plans detailed by Mayra Burnett PA-C
[2023-04-04] MEDS: cefTRIAXone SODIUM 2,000 MG in DEXTROSE 5% 50 ML IV SCH (12:23)
== END 2023-04-04 14:05 | disposition home or self-care (01) | DRG 418 ==
LOC: 3E 23:13 → ED 23:13 → 3E 03-31 09:48 → SUATTDRO 03-31 15:06